=== PATIENT | female | born 1970 | race Caucasian/White ===

== ENCOUNTER 2016-07-14 21:18 | Emergency (ER) | payer OTHER ==
[~2016-07-14] VITALS: Ht 165.1 cm; Wt 54.0 kg
[~2016-07-14 21:18] MED LIST: IBUP200C PO; MULT-120 PO
[2016-07-14 21:21] VITALS: BP 115/74; PULSE 76; RESP 16; TEMP 97.9; O2SAT 99
--- NOTE | 2016-07-14 21:48 | PD ---
HPI Chief Complaint: Pain: Acute or Chronic Time Seen by Provider: 21:43 Travel History International Travel<30 days: No Contact w/Intl Traveler<30days: No Traveled to known affect area: No History of Present Illness HPI 45-year-old white female presents emergency department with a left knee pain. The patient states that she had gone to the [employer] for her first full day at work on . 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 She states that after work she noticed pain and swelling in her left knee. She states that has progressively worsened over last several days. Pain is worse with weightbearing and bending of the knee. Some relief with elevation, and ice. Pain is sharp and stabbing and throbbing at times. Moderate in intensity but more severe with weightbearing. She denies any traumatic event. No numbness, tingling or weakness. She states that she has had surgery on her right knee for a meniscal tear when she was in college. She denies any injury to her left knee in the past. [facility] Past Medical History Narrative Medical History of alcohol abuse, right knee arthroscopy Anxiety: No Depression: No Cancer: No Cardiovascular Problems: No Endocrine: No Gastrointestinal Disorders: No Genitourinary: No Implanted Vascular Access Dvce: No Psychiatric: No Reproductive: No Respiratory: No Seizures: Yes (ETOH WITHDRAWAL) Tetanus Vaccination: < 5 Years ?: Not LMP: N/A Past Surgical History Narrative Surgical aPPENDECTOMY, RIGHT knee arthroscopy, left ankle ORIF Abdominal Surgery: No Appendectomy: Yes Cardiac Surgery: No Ear Surgery: No Endocrine Surgery: No Eye Surgery: No Genitourinary Surgery: No Gynecologic Surgery: No Neurologic Surgery: No Oral Surgery: No Thoracic Surgery: No Other Surgery: Yes Social History Alcohol Use: Yes (BEER DAILY) Tobacco Use: No Substance Use: No Allergies-Medications (Allergen,Severity, Reaction): Coded Allergies: No Known Allergies (Verified , 07/14/16) Reported Meds & Prescriptions Reported Meds & Active Scripts Active Reported Ibuprofen 200 Mg Cap 200 Mg PO Q4H PRN Multivitamin Women (Multiple Vitamins W/ Minerals) 1 Tab Tab 1 Tab PO DAILY Review of Systems Except as stated in HPI: all other systems reviewed are Neg Physical Exam Narrative GENERAL: This is a well-nourished, well-developed patient, in no apparent distress. SKIN: No rashes, ecchymoses or lesions. Warm and dry. HEAD: Atraumatic. Normocephalic. EYES: PERRL, EOMI, no discharge or injection. No scleral icterus. EARS: Clear NOSE: Nasal turbinates appear normal. THROAT: Mucosa pink and moist. Airway patent. NECK: Trachea midline. supple, moves head freely. LUNGS: Clear to auscultation. CV: Regular in rhythm. ABDOMEN: Soft nontender. EXT: No clubbing cyanosis. Examination of left lower extremity reveals a joint effusion. She has full extension but has limited flexion due to pain. No anterior posterior draw. She has pain on medial meniscus testing. No pain on lateral collateral ligament testing. Positive pain on medial collateral ligament testing. There is no pain in the foot, ankle or hip. The skin is intact. She has small punctate areas of ecchymosis over the knee. Data Data Last Documented VS Vital Signs Date Time Temp Pulse Resp B/P Pulse Ox O2 Delivery O2 Flow Rate FiO2 07/14/16 21:21 97.9 76 16 115/74 99 Room Air Orders Knee, Complete (4vws) (07/14/16 21:38) MDM Medical Decision Making Medical Screen Exam Complete: Yes Emergency Medical Condition: Yes Medical Record Reviewed: Yes Interpretation(s) Left knee: Negative for fracture. Mild degenerative changes. Mild osteoporosis. Suprapatellar effusion Differential Diagnosis MDM: High Differential diagnoses: Fracture, sprain, strain, dislocation, contusion, neurovascular injury Narrative Course This is left knee effusion, left knee pain Diagnosis Primary Impression: Effusion, left knee Additional Impression: Left knee pain Qualified Code: M25.562 - Acute pain of left knee Patient Instructions: General Instructions Departure Forms: Tests/Procedures, Work Release Special Instructions: No work 3 days. Additional Instructions: Rest. Elevation. Medications as directed. Limited activity. Follow-up with a primary care doctor or an orthopedist in one week. Return to the ER for emergencies. Med/Other Pt SpecificInfo: Prescription(s) given Disposition: 01 DISCHARGE HOME Condition: Stable Eduin Baptiste Jul 14, 2016 21:48
[2016-07-14] MEDS ORDERED: PRED-503 PO (22:06)
[2016-07-14] MEDS ORDERED: HYDR-3533 PO (22:06)
--- NOTE | 2016-07-14 22:32 | RADRPT ---
EXAM DATE/TIME: 07/14/2016 21:46 [facility] COMPARISON: No previous studies available for comparison. INDICATIONS : Left knee pain. No prior trauma. MEDICAL HISTORY : None. SURGICAL HISTORY : None. ENCOUNTER: Initial ACUITY: 1 week PAIN SCORE: 8/10 LOCATION: Left Knee. FINDINGS: Subtle radiolucencies are identified along the medial and lateral tibial plateau extending to the art iculating surface. These may or present nondisplaced hairline fractures. Minimal effusion is present. The femur and patella are intact. CONCLUSION: Suspected hairline fractures involving the tibial plateau with associated small effusion. Prasanna Slaughter MD on July 14, 2016 at 22:29 Board Certified Radiologist. This report was verified electronically.
[2016-07-22] MEDS ORDERED: IBUP200T2 PO (15:44)
[2016-07-22] MEDS ORDERED: PRED20 PO (15:44)
[2016-07-22] MEDS ORDERED: KETO60IN6 IM (16:04)
== END 2016-07-14 22:24 | disposition home or self-care (01) ==
LOC: NEPB 21:18
DX: M25.462 Effusion, left knee (principal); M25.562 Pain in left knee
CPT/HCPCS: 73564; 99283

== ENCOUNTER 2016-07-14 23:19 | Emergency (ER) | payer OTHER ==
[~2016-07-14] VITALS: Ht 165.1 cm; Wt 55.0 kg
[~2016-07-14 23:19] MED LIST changes: +HYDR-3533 PO; +PRED-503 PO
[2016-07-14 23:22] VITALS: BP 133/79; PULSE 82; RESP 16; TEMP 98.1; O2SAT 99
--- NOTE | 2016-07-14 23:56 | PD ---
HPI Chief Complaint: Injury Time Seen by Provider: 23:54 Travel History International Travel<30 days: No Contact w/Intl Traveler<30days: No Traveled to known affect area: No History of Present Illness HPI This is a 45-year-old white female who had just seen earlier this evening for a left knee injury. My initial evaluation of the x-ray did not reveal an obvious fracture. Radiologist feels that there is a potential tibial plateau fracture. The patient was notified by phone within 1 hour of being discharged. The patient has returned for further evaluation and treatment. We will obtain a CAT scan of her left knee for further evaluation. [facility] Past Medical History Narrative Medical History of seizures, alcohol abuse-states over since April. Anxiety: No Depression: No Cancer: No Cardiovascular Problems: No Endocrine: No Gastrointestinal Disorders: No Genitourinary: No Implanted Vascular Access Dvce: No Psychiatric: No Reproductive: No Respiratory: No Immunizations Current: Yes Seizures: Yes (ETOH WITHDRAWAL) Tetanus Vaccination: > 5 Years Influenza Vaccination: Yes ?: Not Past Surgical History Abdominal Surgery: No Appendectomy: Yes Cardiac Surgery: No Ear Surgery: No Endocrine Surgery: No Eye Surgery: No Genitourinary Surgery: No Gynecologic Surgery: No Neurologic Surgery: No Oral Surgery: No Thoracic Surgery: No Other Surgery: Yes Social History Alcohol Use: No Tobacco Use: No Substance Use: No Allergies-Medications (Allergen,Severity, Reaction): Coded Allergies: No Known Allergies (Verified , 07/14/16) Reported Meds & Prescriptions Reported Meds & Active Scripts Active Lortab (Hydrocodone-Acetaminophen) 5-325 Mg Tab 1 Tab PO Q8HR PRN Reported Multivitamin Women (Multiple Vitamins W/ Minerals) 1 Tab Tab 1 Tab PO DAILY Review of Systems Except as stated in HPI: all other systems reviewed are Neg Musculoskeletal: Positive: Arthralgias, Limited ROM, Edema, Pain Physical Exam Narrative GENERAL: This is a well-nourished, well-developed patient, in no apparent distress. SKIN: No rashes, ecchymoses or lesions. Warm and dry. HEAD: Atraumatic. Normocephalic. EYES: PERRL, EOMI, no discharge or injection. No scleral icterus. EARS: Clear NOSE: Nasal turbinates appear normal. THROAT: Mucosa pink and moist. Airway patent. NECK: Trachea midline. supple, moves head freely. LUNGS: Clear to auscultation. CV: Regular in rhythm. ABDOMEN: Soft nontender. EXT: No clubbing cyanosis. Examination of left lower extremity reveals a joint effusion. She has full extension but has limited flexion due to pain. No anterior posterior draw. She has pain on medial meniscus testing. No pain on lateral collateral ligament testing. Positive pain on medial collateral ligament testing. There is no pain in the foot, ankle or hip. The skin is intact. She has small punctate areas of ecchymosis over the knee. Data Data Last Documented VS Vital Signs Date Time Temp Pulse Resp B/P Pulse Ox O2 Delivery O2 Flow Rate FiO2 07/14/16 23:22 98.1 82 16 133/[address] Knee W/O Contrast (07/14/16 ) Crutches (07/15/16 01:38) Naproxen (Naprosyn) (07/15/16 01:45) Acetamin-Hydrocod 325-5 Mg (D[place]mond 5-325 (07/15/16 01:45) MDM Medical Decision Making Medical Screen Exam Complete: Yes Emergency Medical Condition: Yes Medical Record Reviewed: Yes Interpretation(s) Last 24 hours Impressions Lower Extremity CT 07/14/16 0000 Signed Impressions: Service Date/Time: Friday, July 15, 2016 00:16 - CONCLUSION: 1. Osteopenia. No acute fracture. Eduin Bautista MD Differential Diagnosis Differential diagnoses: Sprain, strain, tibial plateau fracture Narrative Course CT scan of the left knee is negative for acute fracture. Positive osteopenia and joint effusion. Patient given crutches, Lortab 5 mg and Naprosyn 500 mg by mouth. Diagnosis Primary Impression: Effusion, left knee Additional Impression: Left knee pain Qualified Code: M25.562 - Acute pain of left knee Patient Instructions: General Instructions Additional Instructions: Continue your current plan. Med/Other Pt SpecificInfo: No Change to Meds Disposition: DISCHARGE HOME Condition: Stable Eduin Baptiste Jul 14, 2016 23:56
--- NOTE | 2016-07-15 00:34 | RADRPT ---
EXAM DATE/TIME: 07/15/2016 00:16 [facility] COMPARISON: No previous studies available for comparison. INDICATIONS : Evaluate for fracture. RADIATION DOSE: 7.29 CTDIvol (mGy) MEDICAL HISTORY : None SURGICAL HISTORY : None. ENCOUNTER: Initial ACUITY: 1 day PAIN SCALE: 10/10 LOCATION: Left knee TECHNIQUE: Volumetric scanning of the knee was performed. Using automated exposure control and adjustment of th e mA and/or kV according to patient size, radiation dose was kept as low as reasonably achievable to obtain optimal diagnostic quality images. FINDINGS: The bones are osteopenic. Small joint effusion. No acute fracture or dislocation. CONCLUSION: 1. Osteopenia. No acute fracture. Eduin Bautista MD on July 15, 2016 at 0:29 Board Certified Radiologist. This report was verified electronically.
[2016-07-15] MEDS ORDERED: ACETAMINOPHEN/HYDROcodone 325 MG/5 MG TAB PO ONE (01:45)
[2016-07-15] MEDS ORDERED: NAPROXEN 500 MG TAB PO ONE (01:45)
[2016-07-22] MEDS ORDERED: PRED20 PO (15:44)
[2016-07-22] MEDS ORDERED: IBUP200T2 PO (15:44)
[2016-07-22] MEDS ORDERED: KETO60IN6 IM (16:04)
== END 2016-07-15 02:05 | disposition home or self-care (01) ==
LOC: NEPB 23:19
DX: M25.462 Effusion, left knee (principal)
CPT/HCPCS: 73700

== ENCOUNTER 2016-08-27 01:45 | Emergency (ER) | payer SELFPAY ==
[~2016-08-27] VITALS: Ht 167.6 cm; Wt 60.0 kg
[~2016-08-27 01:45] MED LIST changes: -IBUP200C PO; +IBUP200T2 PO; -PRED-503 PO; +PRED20 PO
[2016-08-27 01:47] VITALS: BP 112/73; PULSE 80; RESP 16; TEMP 97.6; O2SAT 100
--- NOTE | 2016-08-27 03:01 | PD ---
HPI Chief Complaint: Skin Problem Time Seen by Provider: 02:57 Travel History International Travel<30 days: No Contact w/Intl Traveler<30days: No Traveled to known affect area: No History of Present Illness HPI 45-year-old female presents to emergency department with a one-month history of progressive pruritic rash all over her whole body. She states that it continues to worsen and spread. It had initially started on her extremities but now is moved her trunk only thing that seems to be spared is her face. She does not recall any new chemicals or exposures. Review of the record indicates she had had a similar rash the past but cannot recall. No recent illness. No fever chills. PFSH Past Medical History Anxiety: No Depression: No Cancer: No Cardiovascular Problems: No Diminished Hearing: No Endocrine: No Gastrointestinal Disorders: No Genitourinary: No Implanted Vascular Access Dvce: No Psychiatric: No Reproductive: No Respiratory: No Immunizations Current: Yes Seizures: Yes (ETOH WITHDRAWAL) Tetanus Vaccination: > 5 Years Influenza Vaccination: Yes ?: Not Past Surgical History Abdominal Surgery: No Appendectomy: Yes Cardiac Surgery: No Ear Surgery: No Endocrine Surgery: No Eye Surgery: No Genitourinary Surgery: No Gynecologic Surgery: No Neurologic Surgery: No Oral Surgery: No Thoracic Surgery: No Other Surgery: Yes Social History Alcohol Use: No Tobacco Use: No Substance Use: No Allergies-Medications (Allergen,Severity, Reaction): Coded Allergies: No Known Allergies (Verified , 08/27/16) Reported Meds & Prescriptions Reported Meds & Active Scripts Active Reported Ibuprofen 200 Mg Tab 400 Mg PO Q4H PRN Multivitamin Women (Multiple Vitamins W/ Minerals) 1 Tab Tab 1 Tab PO DAILY Review of Systems Except as stated in HPI: all other systems reviewed are Neg Skin: Positive Rash, Positive Itching, Positive Lesions Physical Exam Narrative GENERAL: This is a well-nourished, well-developed patient, in no apparent distress. SKIN: Patient has a diffuse whole body rash which is consisting of a story of the back rear papular lesions and some scaling. I question whether this could be scabies or a contact dermatitis. No signs of any wound infection., ecchymoses or lesions. Warm and dry. HEAD: Atraumatic. Normocephalic. EYES: PERRL, EOMI, no discharge or injection. No scleral icterus. EARS: Clear NOSE: Nasal turbinates appear normal. THROAT: Mucosa pink and moist. Airway patent. NECK: Trachea midline. supple, moves head freely. LUNGS: Clear to auscultation. CV: Regular in rhythm. ABDOMEN: Soft nontender. EXT: No clubbing cyanosis or edema. Data Data Last Documented VS Vital Signs Date Time Temp Pulse Resp B/P Pulse Ox O2 Delivery O2 Flow Rate FiO2 08/27/16 02:11 16 08/27/16 01:47 97.6 80 112/73 100 MDM Medical Decision Making Medical Screen Exam Complete: Yes Emergency Medical Condition: Yes Medical Record Reviewed: Yes Differential Diagnosis MDM: High Differential diagnoses: Abscess, folliculitis, cellulitis, lymphangitis, abrasion, contact dermatitis, scabies Narrative Course The patient has had a progressive rash over last month. I am concerned that she may have contacted scabies. She'll also be treated for contact dermatitis. Diagnosis Primary Impression: Contact dermatitis Qualified Code: L25.9 - Contact dermatitis, unspecified contact dermatitis type, unspecified trigger Additional Impression: scabies Patient Instructions: General Instructions Additional Instructions: Rest. Elevation. keep clean and dry. Medications as directed Daily wound care with soap, water and Neosporin. Three Advil every 6 hours. Zyrtec daily. May take additional 25-50 mg Benadryl every 6 hours as needed for additional itching. Follow-up with a primary care doctor in one week. Return to the ER for any problems. Med/Other Pt SpecificInfo: Prescription(s) given Disposition: DISCHARGE HOME Condition: Stable Eduin Baptiste Aug 27, 2016 03:01
[2016-08-27] MEDS ORDERED: PRED-503 PO (03:02)
[2016-08-27] MEDS ORDERED: PERM5CRE11 TOPICAL (03:02)
== END 2016-08-27 03:36 | disposition home or self-care (01) ==
LOC: NEPK 01:45
DX: L25.9 Unspecified contact dermatitis, unspecified cause (principal); B86 Scabies
CPT/HCPCS: 99282

== ENCOUNTER 2016-11-14 13:10 | Inpatient (IN) | payer SELFPAY ==
[~2016-11-14] VITALS: Ht 165.1 cm; Wt 49.6 kg
[2016-11-14] VITALS (8 sets, daily range): BP systolic 92–130; BP diastolic 51–78; PULSE 69–180; RESP 14–25; TEMP 98.3; O2SAT 99–100
[~2016-11-14 13:10] MED LIST changes: -HYDR-3533 PO; +PERM5CRE11 TOPICAL; +PRED-503 PO; -PRED20 PO
[2016-11-14] MEDS ORDERED: ADENOSINE IV SOLN 3 MG/ML 2 ML VIAL ONE (13:25)
[2016-11-14] MEDS ORDERED: SODIUM CHLOR 0.9% 1000 ML INJ 1,000 ML IV ONE (13:45)
[2016-11-14] MEDS ORDERED: SODIUM CHLORIDE 0.9% FLUSH 10 ML FLUSH IVF PRN (13:45)
[2016-11-14] MEDS ORDERED: ADENOSINE IV SOLN 3 MG/ML 2 ML VIAL IV PUSH ONE (13:45)
[2016-11-14 13:51] LABS: AUTOMATED NEUTROPHIL # 3.3 TH/MM3 (1.8-7.7); BASOPHIL # 0.1 TH/MM3 (0-0.2); EOSINOPHIL # 0.1 TH/MM3 (0-0.4); EOSINOPHIL % 1.4 % (0.0-4.0); HEMATOCRIT 38.8 % (35.0-46.0); HEMO FLAGS DIFF FINAL; LYMPHOCYTE # 1.9 TH/MM3 (1.0-4.8); MEAN CELL VOLUME 84.3 FL (80.0-100.0); MEAN CORPUSCULAR HEMOGLOBIN 28.8 PG (27.0-34.0); MEAN CORPUSCULAR HGB CONC 34.1 % (32.0-36.0); MONO % 12.4 % (0.0-8.0); NEUT % 54.2 % (16.0-70.0); PLATELET COUNT 232 TH/MM3 (150-450)
--- NOTE | 2016-11-14 13:54 | RADRPT ---
EXAM DATE/TIME: 11/14/2016 13:29 [facility] COMPARISON: CHEST SINGLE AP, October 31, 2014, 21:08. INDICATIONS : Pain and tightness in chest since last evening, nausea, vomiting MEDICAL HISTORY : seizure SURGICAL HISTORY : None. ENCOUNTER: Initial ACUITY: 1 day PAIN SCORE: 6/10 LOCATION: Bilateral chest FINDINGS: A single view of the chest demonstrates the lungs to be symmetrically aerated without evidence of mas s, infiltrate or effusion. Granuloma is present on the right. The cardiomediastinal contours are un remarkable. Osseous structures are intact. CONCLUSION: Stable chest, negative for acute process. Giorgio Marks MD FACR on November 14, 2016 at 13:51 Board Certified Radiologist. This report was verified electronically.
[2016-11-14 13:59] LABS: APTT (PATIENT) 33.2 SEC (24.3-30.1); INTERNATIONAL NORMALIZED RATIO 1.2 RATIO; PROTHROMBIN TIME - PATIENT 12.9 SEC (9.8-11.6)
[2016-11-14 14:08] LABS: ANION GAP 14 MEQ/L (5-15); BICARBONATE 23.5 MEQ/L (21.0-32.0); BLOOD UREA NITROGEN 11 MG/DL (7-18); CHLORIDE 99 MEQ/L (98-107); GLOMERULAR FILTRATION RATE 37 ML/MIN (>89); MAGNESIUM 1.9 MG/DL (1.5-2.5); POTASSIUM 3.7 MEQ/L (3.5-5.1); SODIUM (NA) 136 MEQ/L (136-145)
[2016-11-14 14:11] LABS: CREATINE KINASE 114 U/L (26-192)
[2016-11-14 14:38] LABS: CKMB 4.3 NG/ML (0.5-3.6)
[2016-11-14] MEDS ORDERED: ONDANSETRON HCL 4 MG/2 ML VIAL IV PUSH PRN (15:15)
[2016-11-14] MEDS ORDERED: ASPIRIN EC 81 MG TABEC PO ONE (15:30)
--- NOTE | 2016-11-14 15:32 | PD ---
HPI Chief Complaint: Cardiac Complaint Time Seen by Provider: 13:32 Travel History International Travel<30 days: No Contact w/Intl Traveler<30days: No Traveled to known affect area: No History of Present Illness HPI The patient's 46 years old. Last night she developed some weakness and generalized fatigue. She [place] late [place] She woke up this morning with palpitations which are very uncomfortable for her. She arrives to the ER by private auto with SVT. She denies any similar prior episode. She denies a personal or family history of coronary artery disease area. She does not smoke tobacco however does drink alcohol about 3 times a week. She has no history of diabetes hypertension or hyperlipidemia. She reports drinking a large volume of caffeinated tea in order to work her new job which is somewhat stressful but denies excessive energy drink use or any drug abuse. PFSH Past Medical History Anxiety: No Depression: No Cancer: No Cardiovascular Problems: No Diminished Hearing: No Endocrine: No Gastrointestinal Disorders: No Genitourinary: No Implanted Vascular Access Dvce: No Psychiatric: No Reproductive: No Respiratory: No Immunizations Current: Yes Seizures: Yes (ETOH WITHDRAWAL) Tetanus Vaccination: > 5 Years Influenza Vaccination: Yes ?: Not Past Surgical History Abdominal Surgery: No Appendectomy: Yes Cardiac Surgery: No Ear Surgery: No Endocrine Surgery: No Eye Surgery: No Genitourinary Surgery: No Gynecologic Surgery: No Neurologic Surgery: No Oral Surgery: No Thoracic Surgery: No Other Surgery: Yes Social History Alcohol Use: Yes ("FEW TIMES A WEEK" ) Tobacco Use: No Substance Use: No Allergies-Medications (Allergen,Severity, Reaction): Coded Allergies: No Known Allergies (Verified , 08/27/16) Reported Meds & Prescriptions Reported Meds & Active Scripts Active No Active Prescriptions or Reported Medications Review of Systems Except as stated in HPI: all other systems reviewed are Neg Physical Exam Narrative GENERAL: 46-year-old female pleasant well-nourished well-developed moderate distress secondary to tachycardia SKIN: Focused skin assessment warm/dry. HEAD: Atraumatic. Normocephalic. EYES: Pupils equal and round. No scleral icterus. No injection or drainage. ENT: No nasal bleeding or discharge. Mucous membranes pink and moist. NECK: Trachea midline. No JVD. CARDIOVASCULAR: Tachycardia at about 170. Regular rhythm. RESPIRATORY: No accessory muscle use. Clear to auscultation. Breath sounds equal bilaterally. GASTROINTESTINAL: Abdomen soft, non-tender, nondistended. Hepatic and splenic margins not palpable. MUSCULOSKELETAL: No obvious deformities. No clubbing. No cyanosis. No edema. NEUROLOGICAL: Awake and alert. No obvious cranial nerve deficits. Motor grossly within normal limits. Normal speech. PSYCHIATRIC: Appropriate mood and affect; insight and judgment normal. Data Data Last Documented VS Vital Signs Date Time Temp Pulse Resp B/P Pulse Ox O2 Delivery O2 Flow Rate FiO2 11/14/16 13:35 99 Nasal Cannula 3 11/14/16 13:35 73 18 99/73 Vital signs reviewed Orders Adenosine Inj (Adenocard Inj) (11/14/16 13:25) Electrocardiogram (11/14/16 13:32) Basic Metabolic Panel (Bmp) (11/14/16 13:32) Ckmb (Isoenzyme) Profile (11/14/16 13:32) Complete Blood Count With Diff (11/14/16 13:32) Magnesium (Mg) (11/14/16 13:32) Prothrombin Time / Inr (Pt) (11/14/16 13:32) Act Partial Throm Time (Ptt) (11/14/16 13:32) Troponin I (11/14/16 13:32) Chest, Single Ap (11/14/16 13:32) Ecg Monitoring (11/14/16 13:32) Iv Access Insert/Monitor (11/14/16 13:32) Oximetry (11/14/16 13:32) Oxygen Administration (11/14/16 13:32) Sodium Chloride 0.9% Flush (Ns Flush) (11/14/16 13:45) Sodium Chlor 0.9% 1000 Ml Inj (Ns 1000 M (11/14/16 13:45) Adenosine Inj (Adenocard Inj) (11/14/16 13:45) CKMB (11/14/16 13:25) CKMB% (11/14/16 13:25) Troponin I (11/14/16 19:00) Troponin I (11/15/16 01:00) Diet Npo (11/14/16 Dinner) Vital Signs (Adult) FLOYD.Q4H (11/14/16 15:06) Sodium Chlor 0.9% 1000 Ml Inj (Ns 1000 M (11/14/16 15:15) Ondansetron Inj (Zofran Inj) (11/14/16 15:15) Admit Order (Ed Use Only) (11/14/16 15:09) Labs Laboratory Tests Test 11/14/16 13:25 White Blood Count 6.0 TH/MM3 Red Blood Count 4.60 MIL/MM3 Hemoglobin 13.2 GM/DL Hematocrit 38.8 % Mean Corpuscular Volume 84.3 FL Mean Corpuscular Hemoglobin 28.8 PG Mean Corpuscular Hemoglobin 34.1 % Concent Red Cell Distribution Width 18.0 % Platelet Count 232 TH/MM3 Mean Platelet Volume 8.2 FL Neutrophils (%) (Auto) 54.2 % Lymphocytes (%) (Auto) 31.0 % Monocytes (%) (Auto) 12.4 % Eosinophils (%) (Auto) 1.4 % Basophils (%) (Auto) 1.0 % Neutrophils # (Auto) 3.3 TH/MM3 Lymphocytes # (Auto) 1.9 TH/MM3 Monocytes # (Auto) 0.7 TH/MM3 Eosinophils # (Auto) 0.1 TH/MM3 Basophils # (Auto) 0.1 TH/MM3 CBC Comment DIFF FINAL Differential Comment Prothrombin Time 12.9 SEC Prothromb Time International 1.2 RATIO Ratio Activated Partial 33.2 SEC Thromboplast Time Sodium Level 136 MEQ/L Potassium Level 3.7 MEQ/L Chloride Level 99 MEQ/L Carbon Dioxide Level 23.5 MEQ/L Anion Gap 14 MEQ/L Blood Urea Nitrogen 11 MG/DL Creatinine 1.51 MG/DL Estimat Glomerular Filtration 37 ML/MIN Rate Random Glucose 188 MG/DL Calcium Level 8.4 MG/DL Magnesium Level 1.9 MG/DL Total Creatine Kinase 114 U/L Creatine Kinase MB 4.3 NG/ML Troponin I 1.01 NG/ML [facility] Medical Decision Making Medical Screen Exam Complete: Yes Emergency Medical Condition: Yes Medical Record Reviewed: Yes Differential Diagnosis NSTEMI, unstable angina, coronary vasospasm, PE, PTX, aortic dissection, pericarditis, myocarditis, endocarditis, PNA, esophageal disease, aneurysm, musculoskeletal etiologies, anxiety, cocaine/sympathomimetic abuse Narrative Course Initial EKG reveals supraventricular tachycardia rate about 170. Repeat EKG reveals sinus rhythm at a rate of 80. CBC & BMP Diagram 11/14/16 13:25 Troponin is 1.01 Results were discussed with cardiology who requested chest pain center workup, also noting Tn of 1.01 is not unexpected. Outpatient EP follow up advised. Due to the troponin of 1.0 the patient cannot be managed there. Dr Wilhelm for [facility] has accepted the patient. Diagnosis Primary Impression: SVT (supraventricular tachycardia) Additional Impression: Elevated troponin Admitting Information Admitting Physician Requests: Observation Scripts No Active Prescriptions or Reported Meds Luigi Reid MD Nov 14, 2016 15:32
--- NOTE | 2016-11-14 15:34 | HHI.HP ---
[facility] [place] Physician Susan Kendall MD Admission Diagnosis SVT, Tn 1.0 Diagnoses: (1) Elevated troponin Diagnosis: Principal (2) SVT (supraventricular tachycardia) Diagnosis: Principal (3) Acute kidney injury Diagnosis: Principal Chief Complaint: palpitation Travel History International Travel<30 Days: No Contact w/Intl Traveler <30 Da: No Traveled to Known Affected Are: No History of Present Illness patient is a 46 y/o female with no significant past medical history who presented to ER with dizziness and palpitation. she says that she was at her usual state of health till last night around ten when she started to feel dizzy. she says that she went to bed but when she woke up this morning she had palpitation and since she wasn't feeling good she decided to come to ER. she denies any chest pain or sob but she says that she had nausea and threw up a few times.she was found to be in SVT for which she received a dose of adenosine after which it converted to sinus rhythm. she was in no acute distress at the time of my evaluation. Review of Systems Constitutional: COMPLAINS OF: Dizziness, DENIES: Fever, Weight loss, Chills, Night Sweats Eyes: DENIES: Blurred vision, Diplopia, Vision loss, Double Vision Ears, nose, mouth, throat: DENIES: Tinnitus, Vertigo, Throat pain, Epistaxis Respiratory: DENIES: Apneas, Cough, Snoring, Wheezing, Hemoptysis, Sputum production, Shortness of breath Cardiovascular: COMPLAINS OF: Palpitations, DENIES: Chest pain, Syncope, Dyspnea on Exertion, PND, Lower Extremity Edema, Orthopnea, Claudication Gastrointestinal: DENIES: Abdominal pain, Black stools, Bloody stools, Constipation, Diarrhea, Nausea, Vomiting, Difficulty Swallowing, Anorexia Genitourinary: DENIES: Urinary frequency, Urgency, Hematuria, Dysuria Musculoskeletal: DENIES: Joint pain, Muscle aches, Stiffness, Joint Swelling Integumentary: DENIES: Rash Neurologic: DENIES: Abnormal gait, Headache, Localized weakness, Paresthesias, Seizures, Speech Problems, Tremor, Poor Balance Psychiatric: DENIES: Anxiety, Confusion, Mood changes, Depression, Hallucinations, Agitation, Suicidal Ideation, Homicidal Ideation, Delusions Past Family Social History Past Medical History not significant. Past Surgical History appendectomy. Reported Medications none reported. Allergies: Coded Allergies: No Known Allergies (Verified , 08/27/16) Active Ordered Medications Current Medications Adenosine (Adenocard Inj) 18 mg STK-MED ONCE .ROUTE ; Start 11/14/16 at 13:25; Stop 11/14/16 at 13:26; Status DC Sodium Chloride 2 ml 2 ml UNSCH PRN IVF FLUSH AFTER USING IV ACCESS; Start at 13:45 Sodium Chloride (NS 1000 ml Inj) 1,000 ml @ 999 mls/hr BOLUS ONCE IV Last administered on 11/14/16 13:48; Start 11/14/16 at 13:45; Stop 11/14/16 at 14:45 ; Status DC Adenosine 6 mg 6 mg ONCE ONCE IV PUSH Last administered on 11/14/16 13:37; Start 11/14/16 at 13:45; Stop 11/14/16 at 13:46; Status DC Sodium Chloride (NS 1000 ml Inj) 1,000 ml @ 84 mls/hr [id number] IV ; Start at 15:15; Status UNV Ondansetron HCl (Zofran Inj) 4 mg Q8HR PRN IV PUSH NAUSEA; Start 11/14/16 at 15 :15; Status UNV Family History not relevant to this presentation. Social History doesn't smoke. drinks occasionally. Physical Exam Vital Signs Vital Signs Date Time Temp Pulse Resp B/P Pulse Ox O2 Delivery O2 Flow Rate FiO2 11/14/16 13:35 99 Nasal Cannula 3 11/14/16 13:35 99 Nasal Cannula 3 11/14/16 13:35 73 18 99/73 100 Nasal Cannula 3 11/14/16 13:31 164 25 99 Nasal Cannula 3 11/14/16 13:30 164 11/14/16 13:23 164 25 92/64 100 11/14/16 13:16 180 14 95/51 100 Room Air Physical Exam GENERAL: This is a well-nourished, well-developed patient, in no apparent distress. SKIN: No rashes, ecchymoses or lesions. Cool and dry. HEAD: Atraumatic. Normocephalic. No temporal or scalp tenderness. EYES: Pupils equal round and reactive. Extraocular motions intact. No scleral icterus. No injection or drainage. ENT: Nose without bleeding, purulent drainage or septal hematoma. Throat without erythema, tonsillar hypertrophy or exudate. Uvula midline. Airway patent. NECK: Trachea midline. No JVD or lymphadenopathy. Supple, nontender, no meningeal signs. CARDIOVASCULAR: Regular rate and rhythm without murmurs, gallops, or rubs. RESPIRATORY: Clear to auscultation. Breath sounds equal bilaterally. No wheezes , rales, or rhonchi. GASTROINTESTINAL: Abdomen soft, non-tender, nondistended. No hepato-splenomegaly , or palpable masses. No guarding. MUSCULOSKELETAL: Extremities without clubbing, cyanosis, or edema. No joint tenderness, effusion, or edema noted. No calf tenderness. Negative Homans sign bilaterally. NEUROLOGICAL: Awake and alert. Cranial nerves II through XII intact. Motor and sensory grossly within normal limits. Five out of 5 muscle strength in all muscle groups. Normal speech. Laboratory Laboratory Tests Test 11/14/16 13:25 White Blood Count 6.0 Red Blood Count 4.60 Hemoglobin 13.2 Hematocrit 38.8 Mean Corpuscular Volume 84.3 Mean Corpuscular Hemoglobin 28.8 Mean Corpuscular Hemoglobin 34.1 Concent Red Cell Distribution Width 18.0 Platelet Count 232 Mean Platelet Volume 8.2 Neutrophils (%) (Auto) 54.2 Lymphocytes (%) (Auto) 31.0 Monocytes (%) (Auto) 12.4 Eosinophils (%) (Auto) 1.4 Basophils (%) (Auto) 1.0 Neutrophils # (Auto) 3.3 Lymphocytes # (Auto) 1.9 Monocytes # (Auto) 0.7 Eosinophils # (Auto) 0.1 Basophils # (Auto) 0.1 CBC Comment DIFF FINAL Differential Comment Prothrombin Time 12.9 Prothromb Time International 1.2 Ratio Activated Partial 33.2 Thromboplast Time Sodium Level 136 Potassium Level 3.7 Chloride Level 99 Carbon Dioxide Level 23.5 Anion Gap 14 Blood Urea Nitrogen 11 Creatinine 1.51 Estimat Glomerular Filtration 37 Rate Random Glucose 188 Calcium Level 8.4 Magnesium Level 1.9 Total Creatine Kinase 114 Creatine Kinase MB 4.3 Troponin I 1.01 Result Diagram: 11/14/16 1325 11/14/16 1325 Imaging Last Impressions Chest X-Ray 11/14/16 1332 Signed Impressions: Service Date/Time: Monday, November 14, 2016 13:29 - CONCLUSION: Stable chest, negative for acute process. Giorgio Marks MD FACR EKG; SVT Assessment and Plan Assessment and Plan A/P - SVT - converted to sinus rhythm after a dose of Adenosine in ER- continue to monitor on telemetry -elevated troponin- due to SVT?- trend the cardiac enzymes- consult cardiology. -acute kidney injury; start IV fluid and monitor renal function; BMP in am. Discussed Condition With ER physician and the patient. Physician Certification 2 Midnight Certification Type: Admission for Inpatient Services Order for Inpatient Services The services are ordered in accordance with Medicare regulations or non- Medicare payer requirements, as applicable. In the case of services not specified as inpatient-only, they are appropriately provided as inpatient services in accordance with the 2-midnight benchmark. Estimated LOS (days): 2 days is the estimated time the patient will need to remain in the hospital, assuming treatment plan goals are met and no additional complications. Post-Hospital Plan: Home Mala Wilhelm MD Nov 14, 2016 15:34
[2016-11-14] MEDS: SODIUM CHLOR 0.9% 1000 ML INJ 1,000 ML IV SCH ×2 (16:14→18:27)
--- NOTE | 2016-11-14 17:10 | MB ---
cc: DAV YOST M.D. DATE OF CONSULTATION: 11/14/2016 REASON FOR CONSULTATION: Evaluation of SVT and elevated troponin. HISTORY OF PRESENT ILLNESS Veronique Harding is a 46-year-old woman from [facility], admitted with SVT and elevated troponin. She was at work at 10:00 p.m. and developed the onset of palpitations and dizziness. She had some vomiting. She decided to go home instead of coming to the hospital. This morning she felt the same. She felt her heart beating very, very fast. She presented in SVT with a rate of 170. After IV adenosine she converted to sinus rhythm. She never had any typical ischemic type symptoms. She does not have any angina. She has no known cardiac risk factors, specifically no family history of coronary artery disease, hyperlipidemia, hypertension, diabetes, smoking. She drinks five Kadi teas a day. She has [employer] alcoholic drinks usually three at a time a few times a week, if she is off work she will drink five of them. PAST MEDICAL HISTORY Unremarkable. PAST SURGICAL HISTORY Appendectomy. ALLERGIES None known. SOCIAL HISTORY Does not smoke, does drink alcohol. FAMILY HISTORY Hypertension in her father. No coronary disease. PHYSICAL EXAMINATION GENERAL: Well-developed, well-nourished female in no acute distress. VITAL SIGNS: Charted. HEENT: Exam unremarkable. NECK: No JVD, no bruits. CHEST: Clear to auscultation. CARDIAC: Normal first and second heart sounds. Regular rate and rhythm. No murmurs or gallops. ABDOMEN: Soft, nontender. The masses, organomegaly. EXTREMITIES: No clubbing, cyanosis or edema. EKG From 01:24 p.m. today shows SVT at a rate of 170. There is a tiny retrograde P-wave in V1, suggestive of AV node reentry. EKG 12 minutes later shows normal sinus rhythm with no acute ST-T wave changes. LABORATORY Her creatinine is 1.51. Troponin is 1.01. Hematocrit 38.8. IMPRESSION This is a 46-year-old woman with a history of excessive alcohol consumption, excessive caffeine consumption, who presents with SVT that looks like AV node reentry, looks like she was in it for over 12 hours. Her troponin is elevated but there is no anginal symptoms or signs of ischemia on her EKG and she has no known cardiac risk factors. I believe the elevated troponin is likely secondary to the SVT and my suspicion for coronary artery disease as low even though the troponin is elevated. RECOMMENDATIONS The patient will be observed overnight. Will probably get a nuclear stress test and echo tomorrow, if those are normal we will let her go home and follow up with Dr. Bernardo for consideration of ablation at a future date. In the meantime advised to discontinue drinking alcohol and caffeine. MD THANH Hameed/MONICA /4:53 PM /5:00 PM
--- NOTE | 2016-11-14 17:59 | EKG ---
Date Performed: 11/14/2016 Time Performed: 13:24:04 PTAGE: 46 years EKG: SUPRAVENTRICULAR TACHYCARDIA Nonspecific ST segment changes ABNORMAL ECG NO PREVIOUS TRACING DOCTOR: Linwood Sal Interpretating Date/Time 11/14/2016 17:58:24
--- NOTE | 2016-11-14 17:59 | EKG ---
Date Performed: 11/14/2016 Time Performed: 13:36:09 PTAGE: 46 years EKG: Sinus rhythm NORMAL ECG COMPARED TO PRIOR ELECTROCARDIOGRAM, Sinus rhythm has replaced supraventricular tachycard ia. PREVIOUS TRACING : 11/14/2016 13.24 DOCTOR: Linwood Sal Interpretating Date/Time 11/14/2016 17:58:03
[2016-11-15] VITALS: BP 114/73; PULSE 64; RESP 16; TEMP 98.1; O2SAT 99
[2016-11-15 04:00] VITALS: BP 111/73; PULSE 51; RESP 16; TEMP 97.7; O2SAT 98
[2016-11-15 04:16] LABS: BICARBONATE 26.8 MEQ/L (21.0-32.0); POTASSIUM 3.4 MEQ/L (3.5-5.1)
[2016-11-15 08:00] VITALS: BP 116/69; PULSE 53; PULSE 60; RESP 18; TEMP 98.5; O2SAT 98
[2016-11-15] MEDS ORDERED: MISCELLANEOUS NURSING INFORMATION ONE ×2 (09:00→10:00)
--- NOTE | 2016-11-15 09:20 | PD.CARD.PN ---
Subjective Subjective Remarks No angina. No CV complaints. States she has already gone through menopause Objective Medications Current Medications Medications (Trade) Dose Ordered Sig/Tamera Route Start Time Stop Time Status Last Admin Sodium Chloride 2 ml 2 ml UNSCH PRN IVF 11/14/16 13:45 (NS 1000 ml Inj) 1,000 ml @ 84 mls/hr [id number] IV 11/14/16 15:15 11/14/16 18:27 (Zofran Inj) 4 mg Q8HR PRN IV PUSH 11/14/16 15:15 Miscellaneous Information "PNEUMOVAX VACCINE GI... ONCE ONCE .XX 11/15/16 10:00 11/15/16 10:01 Vital Signs / I&O Vital Signs Date Time Temp Pulse Resp B/P Pulse Ox O2 Delivery O2 Flow Rate FiO2 11/15/16 08:00 98.5 60 18 116/69 98 11/15/16 04:00 97.7 51 16 111/73 98 11/15/16 00:00 98.1 64 16 114/73 99 11/14/16 20:00 73 11/14/16 20:00 98.3 73 16 130/78 100 11/14/16 16:30 69 18 100/70 100 Room Air 11/14/16 15:30 70 18 107/77 99 Room Air 11/14/16 14:30 76 18 111/78 99 Room Air 11/14/16 13:35 99 Nasal Cannula 3 11/14/16 13:35 99 Nasal Cannula 3 11/14/16 13:35 73 18 99/73 100 Nasal Cannula 3 11/14/16 13:31 164 25 99 Nasal Cannula 3 11/14/16 13:30 164 11/14/16 13:23 164 25 92/64 100 11/14/16 13:16 180 14 95/51 100 Room Air I/O 11/14/16 11/14/16 11/14/16 11/15/16 11/15/16 11/15/16 07:00 15:00 23:00 07:00 15:00 23:00 Intake Total 580 ml 0 ml Balance 580 ml 0 ml Intake Oral 580 ml 0 ml # Voids 1 2 # Bowel Movements 0 0 Physical Exam GENERAL: Well developed, well nourished. No acute distress. HEENT: Jugular venous pressure is normal. CHEST: Lungs clear to auscultation bilaterally. Unlabored respiratory effort. CARDIAC: Regular rate and rhythm without S3, S4, or murmur. ABDOMEN: Soft, nontender, no hepatosplenomegaly. Bowel sounds present. EXTREMITIES: No clubbing, cyanosis, or edema. TELE: sinus rhytm, no further SVT, sinus christelle down to 45 while sleeping EKG: NSR, no ischemia Laboratory Laboratory Tests Test 11/14/16 11/14/16 11/15/16 13:25 20:16 02:33 White Blood Count 6.0 TH/MM3 Red Blood Count 4.60 MIL/MM3 Hemoglobin 13.2 GM/DL Hematocrit 38.8 % Mean Corpuscular Volume 84.3 FL Mean Corpuscular Hemoglobin 28.8 PG Mean Corpuscular Hemoglobin 34.1 % Concent Red Cell Distribution Width 18.0 % Platelet Count 232 TH/MM3 Mean Platelet Volume 8.2 FL Neutrophils (%) (Auto) 54.2 % Lymphocytes (%) (Auto) 31.0 % Monocytes (%) (Auto) 12.4 % Eosinophils (%) (Auto) 1.4 % Basophils (%) (Auto) 1.0 % Neutrophils # (Auto) 3.3 TH/MM3 Lymphocytes # (Auto) 1.9 TH/MM3 Monocytes # (Auto) 0.7 TH/MM3 Eosinophils # (Auto) 0.1 TH/MM3 Basophils # (Auto) 0.1 TH/MM3 CBC Comment DIFF FINAL Differential Comment Prothrombin Time 12.9 SEC Prothromb Time International 1.2 RATIO Ratio Activated Partial 33.2 SEC Thromboplast Time Sodium Level 136 MEQ/L 138 MEQ/L Potassium Level 3.7 MEQ/L 3.4 MEQ/L Chloride Level 99 MEQ/L 106 MEQ/L Carbon Dioxide Level 23.5 MEQ/L 26.8 MEQ/L Anion Gap 14 MEQ/L 5 MEQ/L Blood Urea Nitrogen 11 MG/DL 8 MG/DL Creatinine 1.51 MG/DL 0.72 MG/DL Estimat Glomerular Filtration 37 ML/MIN 86 ML/MIN Rate Random Glucose 188 MG/DL 97 MG/DL Calcium Level 8.4 MG/DL 7.5 MG/DL Magnesium Level 1.9 MG/DL Total Creatine Kinase 114 U/L Creatine Kinase MB 4.3 NG/ML Troponin I 1.01 NG/ML 2.50 NG/ML 1.74 NG/ML Imaging Last 24 hours Impressions Chest X-Ray 11/14/16 2 Signed Impressions: Service Date/Time: Monday, November 14, 2016 13:29 - CONCLUSION: Stable chest, negative for acute process. Giorgio Marks MD FACR Assessment and Plan Problem List: (1) SVT (supraventricular tachycardia) Assessment and Plan: typical of AV node reentry. Converted with adenosine. Sched OV with Dr. Bernardo to eval for EPS/RFA. Stop caffeine ([employer] ice teas) and alcohol (2) Elevated troponin Assessment and Plan: levels are high because she stayed in SVT > 12 hours before seeking treatment. No angina. No CAD risk factors. No ischemia by EKG. Order sadi SPECT Assessment and Plan OK to DC home if SPECT is without ischemia. Ryan June MD Nov 15, 2016 09:20
[2016-11-15] MEDS ORDERED: POTASSIUM CHLORIDE 20 MEQ CONTROLLED RELEASE TAB PO ONE (09:30)
--- NOTE | 2016-11-15 09:35 | EKG ---
Date Performed: 11/15/2016 Time Performed: 06:29:16 PTAGE: 46 years EKG: Baseline artifact is present. Probable Sinus bradycardia Prolonged QT interval Anterior T w ave changes are nonspecific Borderline ECG Compared to prior electrocardiogram, rate has slowed. PREVIOUS TRACING : 11/14/2016 13.36 DOCTOR: Linwood Sal Interpretating Date/Time 11/15/2016 09:34:53
--- NOTE | 2016-11-15 11:14 | HHI.PR ---
Subjective Remarks resting comfortably with no distress. no chest pain, sob or dizziness. awaiting stress test. Objective Vitals Vital Signs Date Time Temp Pulse Resp B/P Pulse Ox O2 Delivery O2 Flow Rate FiO2 11/15/16 08:00 98.5 60 18 116/69 98 11/15/16 04:00 97.7 51 16 111/73 98 11/15/16 00:00 98.1 64 16 114/73 99 11/14/16 20:00 73 11/14/16 20:00 98.3 73 16 130/78 100 11/14/16 16:30 69 18 100/70 100 Room Air 11/14/16 15:30 70 18 107/77 99 Room Air 11/14/16 14:30 76 18 111/78 99 Room Air 11/14/16 13:35 99 Nasal Cannula 3 11/14/16 13:35 99 Nasal Cannula 3 11/14/16 13:35 73 18 99/73 100 Nasal Cannula 3 11/14/16 13:31 164 25 99 Nasal Cannula 3 11/14/16 13:30 164 11/14/16 13:23 164 25 92/64 100 11/14/16 13:16 180 14 95/51 100 Room Air I/O 11/14/16 11/14/16 11/14/16 11/15/16 11/15/16 11/15/16 07:00 15:00 23:00 07:00 15:00 23:00 Intake Total 580 ml 0 ml Balance 580 ml 0 ml Intake Oral 580 ml 0 ml # Voids 1 2 # Bowel Movements 0 0 Result Diagram: 11/14/16 1325 11/15/16 0233 Imaging Last Impressions Chest X-Ray 11/14/16 1332 Signed Impressions: Service Date/Time: Monday, November 14, 2016 13:29 - CONCLUSION: Stable chest, negative for acute process. Giorgio Marks MD FACR Objective Remarks GENERAL: This is a well-nourished, well-developed patient, in no apparent distress. CARDIOVASCULAR: Regular rate and regular rhythm without murmurs, gallops, or rubs. RESPIRATORY: Clear to auscultation. Breath sounds equal bilaterally. No wheezes , rales, or rhonchi. GASTROINTESTINAL: Abdomen soft, non-tender, nondistended. Normal, active bowel sounds MUSCULOSKELETAL: Extremities without clubbing, cyanosis, or edema. NEURO: Alert & Oriented x4 to person, place, time, situation. Moves all ext x4 Procedures none Medications and IVs Current Medications Adenosine (Adenocard Inj) 18 mg STK-MED ONCE .ROUTE ; Start 11/14/16 at 13:25; Stop 11/14/16 at 13:26; Status DC Sodium Chloride 2 ml 2 ml UNSCH PRN IVF FLUSH AFTER USING IV ACCESS; Start at 13:45 Sodium Chloride (NS 1000 ml Inj) 1,000 ml @ 999 mls/hr BOLUS ONCE IV Last administered on 11/14/16 13:48; Start 11/14/16 at 13:45; Stop 11/14/16 at 14:45 ; Status DC Adenosine 6 mg 6 mg ONCE ONCE IV PUSH Last administered on 11/14/16 13:37; Start 11/14/16 at 13:45; Stop 11/14/16 at 13:46; Status DC Sodium Chloride (NS 1000 ml Inj) 1,000 ml @ 84 mls/hr [id number] IV Last administered on 11/14/16 18:27; Start 11/14/16 at 15:15 Ondansetron HCl (Zofran Inj) 4 mg Q8HR PRN IV PUSH NAUSEA; Start 11/14/16 at 15 :15 Aspirin (Ecotrin Ec) 162 mg ONCE ONCE PO Last administered on 11/14/16 16:15 ; Start 11/14/16 at 15:30; Stop 11/14/16 at 15:35; Status DC Miscellaneous Information "PNEUMOVAX VACCINE GI... ONCE ONCE .XX ; Start at 10:00; Stop 11/15/16 at 10:01; Status DC Miscellaneous Information "INFLUENZA VACCAINE OUT... ONCE ONCE .XX ; Start 11/15 at 09:00; Stop 11/15/16 at 09:01; Status DC Potassium Chloride (KCl) 40 meq ONCE ONCE PO Last administered on 11/15/16 10: 40; Start 11/15/16 at 09:30; Stop 11/15/16 at 09:31; Status DC A/P Assessment and Plan A/P - SVT - converted to sinus rhythm after a dose of Adenosine in ER- cardiology consult appreciated and recommended outpatient f/u with ( information was given to the patient). -elevated troponin- due to SVT- awaiting stress test. cardiology consult appreciated. -acute kidney injury;resolved. -mild hypokalemia replaced. Discharge Planning dc home later today if the stress test is negative. f/u; pcp and cardiology. see med list. d/w the patient. Mala Wilhelm MD Nov 15, 2016 11:14
--- NOTE | 2016-11-15 11:20 | ECHRPT ---
Indication: cad CONCLUSIONS Normal left ventricular size. Wall thickness is normal. The left ventricular systolic function is normal with an estimated ejection fraction in the range 50 -55% No definite regional wall motion abnormalities are present. There was limited left ventricular wall motion assessment due to poor endocardial visualization. Trace mitral valve regurgitation. The aortic valve is not well visualized. No aortic valve stenosis. No aortic valve regurgitation. There is trace tricuspid valve regurgitation. The pulmonary valve is not well visualized. BP: / HR: Rhythm: MEASUREMENTS (Male / Female) Normal Values Technical Quality: Technically difficult study, Fa ir 2D ECHO LV Diastolic Diameter PLAX 4.0 cm 4.2 - 5.9 / 3.9 - 5.3 cm LV Systolic Diameter PLAX 3.1 cm IVS Diastolic Thickness 1.0 cm 0.6 - 1.0 / 0.6 - 0.9 cm LVPW Diastolic Thickness 1.2 cm 0.6 - 1.0 / 0.6 - 0.9 cm LV Relative Wall Thickness 0.5 RV Internal Dim ED PLAX 2.4 cm M-MODE Aortic Root Diameter MM 3.4 cm LA Systolic Diameter MM 2.8 cm LA Ao Ratio MM 0.8 AV Cusp Separation MM 1.9 cm DOPPLER Mitral E Point Velocity 54.8 cm/s Mitral A Point Velocity 48.9 cm/s Mitral E to A Ratio 1.1 LV E' Lateral Velocity 11.9 cm/s Mitral E to LV E' Lateral Ratio 4.6 LV E' Septal Velocity 10.2 cm/s Mitral E to LV E' Septal Ratio 5.4 TR Peak Velocity 274.0 cm/s TR Peak Gradient 30.0 mmHg FINDINGS LEFT VENTRICLE Normal left ventricular size. Wall thickness is normal. The left ventricular systolic function is normal with an estimated ejection fraction in the range 50 -55% No definite regional wall motion abnormalities are present. There was limited left ventricular wall motion assessment due to poor endocardial visualization. RIGHT VENTRICLE Normal right ventricular size and systolic function. LEFT ATRIUM The left atrial size is normal. RIGHT ATRIUM The right atrial size is normal. ATRIAL SEPTUM Normal atrial septal thickness without atrial level shunting by limited color doppler interrogation. AORTA The aortic root and proximal ascending aorta are normal in size on limited imaging. MITRAL VALVE Structurally normal mitral valve. Trace mitral valve regurgitation. AORTIC VALVE The aortic valve is not well visualized. No aortic valve stenosis. No aortic valve regurgitation. TRICUSPID VALVE Structurally normal tricuspid valve. There is trace tricuspid valve regurgitation. PULMONARY VALVE The pulmonary valve is not well visualized. VESSELS The inferior vena cava is normal in size. PERICARDIUM No pericardial effusion. Linwood Sal MD (Electronically Signed) Final Date:15 November 2016 11:19
[2016-11-15 12:00] VITALS: BP 124/79; PULSE 52; RESP 18; TEMP 98.4; O2SAT 98
[2016-11-15] MEDS ORDERED: REGADENOSON INJ 0.4 MG/5 ML SYR ONE (12:17)
--- NOTE | 2016-11-15 13:26 | RADRPT ---
EXAM DATE/TIME: 11/15/2016 11:51 [facility] COMPARISON: No previous studies available for comparison. INDICATIONS : Dizziness and palpitations with elevated troponins. Abnormal EKG. Coronary artery disease. DOSE: 25.4 mCi Tc99m Myoview at stress. 8.5 mCi Tc99m Myoview at rest. 0.4 mg Lexiscan STRESS SYMPTOMS: None noted. EJECTION FRACTION: 59% MEDICAL HISTORY : None SURGICAL HISTORY : Appendectomy. Right knee and left ankle. ENCOUNTER: Initial ACUITY: 1 day PAIN SCALE: 0/10 LOCATION: chest TECHNIQUE: The patient underwent pharmacologic stress with infusion of prescribed dose. Continuous ECG tracing was monitored during stress. Gated SPECT imaging was performed after stress and conventional SPECT i maging was performed at rest. The examination was performed on a SPECT/CT scanner, both attenuation and non-corrected datasets were reviewed. FINDINGS: DISTRIBUTION: The maximum perfused segment at stress is in the inferior wall. PERFUSION STUDY: The pattern of perfusion at stress is within normal limits. GATED STUDY: There is intact wall motion and thickening without hypokinetic or dyskinetic segments. CONCLUSION: 1. No significant reversibility to suggest ischemia. 2. Normal wall motion and ejection fraction 59%. RISK CATEGORY: Low (<1% Annual Mortality Rate) Eduin Bautista MD on November 15, 2016 at 13:22 Board Certified Radiologist. This report was verified electronically.
[2016-11-15 16:00] VITALS: BP 120/86; PULSE 53; RESP 18; TEMP 98.1; O2SAT 97
== END 2016-11-15 19:00 | disposition home or self-care (01) | DRG 309 ==
LOC: NEPC 13:10 → NEDA 15:11 → N04A 17:57
PROVIDERS: ADMIT Internal Medicine; ATTEND Internal Medicine
DX: I47.1 Supraventricular tachycardia (principal); N17.9 Acute kidney failure, unspecified; R74.8 Abnormal levels of other serum enzymes; E87.6 Hypokalemia
CPT/HCPCS: 71010; 78452; 80048; 82550; 82552; 83735; 84484; 85025; 85610; 85730; 93005; 93017; 93306; 96360; A9502; J0153; J2785; J7030

== ENCOUNTER 2017-10-24 11:42 | Inpatient (IN) | payer SELFPAY ==
[~2017-10-24] VITALS: Ht 165.1 cm; Wt 48.0 kg
[2017-10-24] VITALS (12 sets, daily range): BP systolic 89–112; BP diastolic 54–78; PULSE 78–122; RESP 18–22; TEMP 98.6–100.3; O2SAT 88–100
--- NOTE | 2017-10-24 11:54 | PD ---
HPI Chief Complaint: Respiratory Symptoms Time Seen by Provider: 11:53 Travel History International Travel<30 days: No Contact w/Intl Traveler<30days: No Traveled to known affect area: No History of Present Illness HPI Patient states that she is not a smoker, she has no history of asthma, or COPD and per patient she is also not oxygen dependent. However over the last 2 days she has had this continuous cough that is only productive of whitish sputum. Patient has been feeling chest tightness chest heaviness as well. Any type of exercise including just walking a few steps worsens her shortness of breath. Nothing seems to alleviate it. Patient denies any fever or rash or neck stiffness chest pain, abdominal pain or flank pain, no nausea vomiting or diarrhea, patient denies sore throat runny nose. No known drug allergies Past medical history significant for appendectomy, right knee and left ankle orthopedic surgery, and apparently had an episode of alcohol withdrawal seizures PFSH Past Medical History Arthritis: No Autoimmune Disease: No Anxiety: No Depression: No Cancer: No Cardiovascular Problems: No Cerebrovascular Accident: No Diminished Hearing: No Endocrine: No Gastrointestinal Disorders: No Genitourinary: No Immune Disorder: No Implanted Vascular Access Dvce: No Musculoskeletal: No Neurologic: Yes Psychiatric: No Reproductive: No Respiratory: No Immunizations Current: Yes Migraines: No Seizures: Yes (ETOH WITHDRAWAL) Past Surgical History Abdominal Surgery: Yes (appendeectomy) Appendectomy: Yes Cardiac Surgery: No Ear Surgery: No Endocrine Surgery: No Eye Surgery: No Genitourinary Surgery: No Gynecologic Surgery: No Neurologic Surgery: No Oral Surgery: No Thoracic Surgery: No Other Surgery: Yes Social History Alcohol Use: Yes ("FEW TIMES A WEEK" ) Tobacco Use: No Substance Use: No Allergies-Medications (Allergen,Severity, Reaction): Coded Allergies: No Known Allergies (Verified Adverse Reaction, Unknown, 10/24/17) Reported Meds & Prescriptions Reported Meds & Active Scripts Active No Active Prescriptions or Reported Medications Review of Systems General / Constitutional: No: Fever Eyes: No: Visual changes HENT: No: Headaches Cardiovascular: No: Chest Pain or Discomfort Respiratory: Positive: Cough, Wheezing Gastrointestinal: No: Abdominal Pain Genitourinary: No: Dysuria Musculoskeletal: No: Pain Skin: No Rash Neurologic: No: Weakness Psychiatric: No: Depression Endocrine: No: Polydipsia Hematologic/Lymphatic: No: Easy Bruising Physical Exam Narrative GENERAL: SKIN: Warm and dry. HEAD: Atraumatic. Normocephalic. EYES: Pupils equal and round. No scleral icterus. No injection or drainage. ENT: No nasal bleeding or discharge. Mucous membranes pink and moist. NECK: Trachea midline. No JVD. CARDIOVASCULAR: Regular rate and rhythm. RESPIRATORY: Suprasternal accessory muscle use. Decreased tidal volume, bilateral rhonchi heard throughout ... Patient was tripoding and speaking 1 word dyspnea GASTROINTESTINAL: Abdomen soft, non-tender, nondistended MUSCULOSKELETAL: Extremities without clubbing, cyanosis, or edema. No obvious deformities. NEUROLOGICAL: Awake and alert. No obvious cranial nerve deficits. Motor grossly within normal limits. Five out of 5 muscle strength in the arms and legs. Normal speech. PSYCHIATRIC: Appropriate mood and affect; insight and judgment normal. Data Data Last Documented VS Vital Signs Date Time Temp Pulse Resp B/P (MAP) Pulse Ox O2 Delivery O2 Flow Rate FiO2 10/24/17 13:23 90 20 101/70 (80) 100 Nasal Cannula 4.00 10/24/17 11:45 100.3 Orders Orders Electrocardiogram (10/24/17 11:57) B-Type Natriuretic Peptide (10/24/17 11:57) Ckmb (Isoenzyme) Profile (10/24/17 11:57) Complete Blood Count With Diff (10/24/17 11:57) Comprehensive Metabolic Panel (10/24/17 11:57) D-Dimer (10/24/17 11:57) Prothrombin Time / Inr (Pt) (10/24/17 11:57) Act Partial Throm Time (Ptt) (10/24/17 11:57) Troponin I (10/24/17 11:57) Lipase (10/24/17 11:57) Chest, Single Ap (10/24/17 11:57) Ecg Monitoring (10/24/17 11:57) Iv Access Insert/Monitor (10/24/17 11:57) Oximetry (10/24/17 11:57) Oxygen Administration (10/24/17 11:57) Sodium Chloride 0.9% Flush (Ns Flush) (10/24/17 12:00) Ct Pulmonary Angiogram (10/24/17 11:57) Arterial Blood Gas (Abg) (10/24/17 11:57) Influenzae A/B Antigen (10/24/17 11:57) Sodium Chloride 0.9% Flush (Ns Flush) (10/24/17 12:00) Lactic Acid Sepsis Protocol (10/24/17 11:57) Pneumococcal Urinary Antigen (10/24/17 11:57) Legionella Urinary Antigen (10/24/17 11:57) Sputum Culture And Gram Stain (10/24/17 11:57) Ceftriaxone Inj (Rocephin Inj) (10/24/17 12:00) Azithromycin Inj (Zithromax Inj) (10/24/17 12:00) Iohexol 350 Inj (Omnipaque 350 Inj) (10/24/17 13:04) Admit Order (Ed Use Only) (10/24/17 14:11) Labs Laboratory Tests Test 10/24/17 12:05 10/24/17 12:08 Blood Gas Puncture Site RT RADIAL Blood Gas Patient Temperature 98.6 Blood Gas HCO3 23 mmol/L Blood Gas Base Excess -0.4 mmol/L Blood Gas Oxygen Saturation 87 % Arterial Blood pH 7.45 Arterial Blood Partial Pressure CO2 34 mmHg Arterial Blood Partial Pressure O2 57 mmHG Arterial Blood Oxygen Content 16.0 Vol % Arterial Blood Carboxyhemoglobin 1.9 % Arterial Blood Methemoglobin 0.7 % Blood Gas Hemoglobin 13.1 G/DL Oxygen Delivery Device ROOM AIR Blood Gas Inspired Oxygen 21 % White Blood Count 9.1 TH/MM3 Red Blood Count 4.07 MIL/MM3 Hemoglobin 13.3 GM/DL Hematocrit 38.1 % Mean Corpuscular Volume 93.7 FL Mean Corpuscular Hemoglobin 32.6 PG Mean Corpuscular Hemoglobin Concent 34.8 % Red Cell Distribution Width 16.9 % Platelet Count 228 TH/MM3 Mean Platelet Volume 7.9 FL Neutrophils (%) (Auto) 69.4 % Lymphocytes (%) (Auto) 15.6 % Monocytes (%) (Auto) 13.7 % Eosinophils (%) (Auto) 0.6 % Basophils (%) (Auto) 0.7 % Neutrophils # (Auto) 6.3 TH/MM3 Lymphocytes # (Auto) 1.4 TH/MM3 Monocytes # (Auto) 1.2 TH/MM3 Eosinophils # (Auto) 0.1 TH/MM3 Basophils # (Auto) 0.1 TH/MM3 CBC Comment DIFF FINAL Differential Comment Prothrombin Time 10.7 SEC Prothromb Time International Ratio 1.1 RATIO Activated Partial Thromboplast Time 34.2 SEC D-Dimer Quantitative (PE/DVT) 0.71 MG/L FEU Blood Urea Nitrogen 9 MG/DL Creatinine 0.72 MG/DL Random Glucose 96 MG/DL Total Protein 7.8 GM/DL Albumin 2.7 GM/DL Calcium Level 8.3 MG/DL Alkaline Phosphatase 181 U/L Aspartate Amino Transf (AST/SGOT) 60 U/L Alanine Aminotransferase (ALT/SGPT) 35 U/L Total Bilirubin 0.6 MG/DL Sodium Level 131 MEQ/L Potassium Level 4.6 MEQ/L Chloride Level 96 MEQ/L Carbon Dioxide Level 25.2 MEQ/L Anion Gap 10 MEQ/L Estimat Glomerular Filtration Rate 86 ML/MIN Lactic Acid Level 0.8 mmol/L Total Creatine Kinase 29 U/L Troponin I LESS THAN 0.02 NG/ML B-Type Natriuretic Peptide 60 PG/ML Lipase 131 U/L MDM Medical Decision Making Medical Screen Exam Complete: Yes Emergency Medical Condition: Yes Medical Record Reviewed: Yes Interpretation(s) Pulse ox: Excellent Pleth wave, oximetry reading of 86-88% on room air which is consistent with hypoxemia, with hypoxemia on a patient does not oxygen dependent , prompted a an ABG as well as supplemental oxygen being provided right away, as well as a workup to evaluate reasons or causes for her moderate to severe hypoxemia. ABG was performed after the patient had already been on supplemental oxygen of 4 L for approximately 10-15 minutes. And the oxygen was turned off for probably 60 seconds or so before the ABG was drawn, and still under those circumstances the ABG showed a pH of 7.449, PCO2 of 33.8 and a PaO2 of 57.1 EKG shows normal sinus rhythm, 97 bpm, normal intervals, some motion artifact noted, however no evidence of any ST elevation MA Differential Diagnosis Pulmonary embolus versus pneumonia versus possible COPD and diagnosed versus hypoxemic respiratory failure versus pericardial effusion versus pneumocystis JerOVECI(PCP-HIV RELATED) Narrative Course CBC shows no leukocytosis, no anemia, normal platelet count, no left shift Coagulation profile is within normal limits, d-dimer is elevated at 0.71 Blood gas on room air please see above Patient has a normal lactic acid of 0.8, mild hyponatremia 131, normal kidney and pancreatic enzymes. Mildly elevated AST of 60, ALT 35, alk phos 181, total bilirubin normal at 0.6 First set of cardiac enzymes negative Normal beta natruretic peptide of 60 Negative flu test Chest x-ray shows linear atelectasis of the left lung Pending CT chest [place] [address] chest was read by radiologist as negative for pulmonary embolus, infiltrates in the anterior mid lungs and left lower lung Due to the severe hypoxemia and widened AA gradient there is high suspicion for HIV/AIDS, during admission the patient will be tested Diagnosis Primary Impression: Acute hypoxemic respiratory failure Additional Impression: Bilobar pneumonia Admitting Information Admitting Physician Requests: Admit Scripts No Active Prescriptions or Reported Meds Robert Tao MD Oct 24, 2017 11:54
[2017-10-24] MEDS ORDERED: SODIUM CHLORIDE 0.9% FLUSH 10 ML FLUSH IVF PRN ×2 (12:00)
[2017-10-24] MEDS ORDERED: AZITHROMYCIN INJ 500 MG in SODIUM CHLOR 0.9% 250 ML INJ 250 ML IV ONE (12:00)
[2017-10-24] MEDS ORDERED: cefTRIAXone INJ 1,000 MG in SODIUM CHLORIDE 0.9% INJ 100 ML IV ONE (12:00)
[2017-10-24 12:32] LABS: AUTOMATED NEUTROPHIL # 6.3 TH/MM3 (1.8-7.7); BASOPHIL # 0.1 TH/MM3 (0-0.2); BASOPHIL % 0.7 % (0.0-2.0); EOSINOPHIL # 0.1 TH/MM3 (0-0.4); EOSINOPHIL % 0.6 % (0.0-4.0); HEMATOCRIT 38.1 % (35.0-46.0); HEMOGLOBIN 13.3 GM/DL (11.6-15.3); LYMPH % 15.6 % (9.0-44.0); LYMPHOCYTE # 1.4 TH/MM3 (1.0-4.8); MEAN CELL VOLUME 93.7 FL (80.0-100.0); MEAN CORPUSCULAR HEMOGLOBIN 32.6 PG (27.0-34.0); MEAN CORPUSCULAR HGB CONC 34.8 % (32.0-36.0); MEAN PLATELET VOLUME 7.9 FL (7.0-11.0); MONO % 13.7 % (0.0-8.0); MONOCYTE # 1.2 TH/MM3 (0-0.9); NEUT % 69.4 % (16.0-70.0); PLATELET COUNT 228 TH/MM3 (150-450); RED BLOOD COUNT 4.07 MIL/MM3 (4.00-5.30); RED CELL DISTRIBUTION WIDTH 16.9 % (11.6-17.2); WHITE BLOOD COUNT 9.1 TH/MM3 (4.0-11.0)
[2017-10-24] MEDS: SODIUM CHLOR 0.9% 1000 ML INJ 1,000 ML IV SCH ×2 (12:38→21:37)
--- NOTE | 2017-10-24 12:44 | RADRPT ---
EXAM DATE: 10/24/2017 12:23 PM EDT AGE/SEX: 46 years / Female INDICATIONS: Hypoxemia. Cough. CLINICAL DATA: This is the patient's initial encounter. Patient reports that signs and symptoms have been present for 1 week and indicates a pain score of 0/10. MEDICAL/SURGICAL HISTORY: . Seizure. . Appendectomy. Right knee and left ankle. COMPARISON: [facility] [place], CHEST SINGLE AP, 11/14/2016. . FINDINGS: Linear atelectasis at the left base. Slight elevation of the left hemidiaphragm. Lungs are otherwise clear. Tiny calcified granuloma right midlung. Osseous structures are intact. Heart size normal. CONCLUSION: Linear atelectasis left lung. Electronically signed by: Jose Schaffer MD 10/24/2017 12:43 PM EDT
[2017-10-24 12:47] LABS: INTERNATIONAL NORMALIZED RATIO 1.1 RATIO; PROTHROMBIN TIME - PATIENT 10.7 SEC (9.8-11.6)
[2017-10-24 12:48] LABS: D-DIMER 0.71 MG/L FEU (0.00-0.50)
[2017-10-24 13:00] LABS: ALBUMIN 2.7 GM/DL (3.4-5.0); AST (GOT) 60 U/L (15-37); BICARBONATE 25.2 MEQ/L (21.0-32.0); BLOOD UREA NITROGEN 9 MG/DL (7-18); CALCIUM 8.3 MG/DL (8.5-10.1); CHLORIDE 96 MEQ/L (98-107); CREATININE 0.72 MG/DL (0.50-1.00); GLOMERULAR FILTRATION RATE 86 ML/MIN (>89); GLUCOSE,RANDOM 96 MG/DL (74-106); SODIUM (NA) 131 MEQ/L (136-145)
[2017-10-24] MEDS ORDERED: IOHEXOL 350 MG/ML 10 ML VIAL (for RAD DIAG) IVCONTRAST ONE (13:04)
[2017-10-24 13:05] LABS: ALKALINE PHOSPHATASE 181 U/L (45-117); ALT (GPT) 35 U/L (10-53); TOTAL BILIRUBIN ADULT 0.6 MG/DL (0.2-1.0); TOTAL PROTEIN 7.8 GM/DL (6.4-8.2); TROPONIN I LESS THAN 0.02 NG/ML (0.02-0.05)
--- NOTE | 2017-10-24 13:27 | RADRPT ---
EXAM DATE: 10/24/2017 1:21 PM EDT AGE/SEX: 46 years / Female INDICATIONS: Shortness of breath for two days. CLINICAL DATA: This is the patient's initial encounter. Patient reports that signs and symptoms have been present for 1 day and indicates a pain score of 0/10. MEDICAL/SURGICAL HISTORY: None. Appendectomy. RADIATION DOSE: 7.37 CTDI (mGy) COMPARISON: [facility] – [place], CHEST SINGLE AP, 10/24/2017. . TECHNIQUE: Volumetric scanning was performed using a multi-row detector CT scanner during bolus infu yareli of 70 ml Omnipaque 350 (iohexol) nonionic water-soluble contrast as a single exam dose. The jody a was post processed with a variety of visualization algorithms including full volume maximum intensi ty projection and sliding thin slab reformation. Using automated exposure control and adjustment of the mA and/or kV according to patient size, radiation dose was kept as low as reasonably achievable t o obtain optimal diagnostic quality images. FINDINGS: Pulmonary Arteries: No filling defects are seen in the pulmonary arteries out to the subsegmental ve ssels. The left and right pulmonary arteries are normal in diameter. Lung: Some patchy nonconsolidative infiltrates in the lower left lung and in the anterior mid lungs. 5 mm densely calcified granuloma anterolateral right midlung. No evidence of pneumothorax. Effusion: None. Mediastinum: No evidence of mediastinal or hilar adenopathy. Other: The axilla is unremarkable. CONCLUSION: 1. The study is negative for pulmonary embolism. 2. Linear atelectasis or infiltrates in the anterior mid lungs and left lower lung. Electronically signed by: Shelton Wilson MD 10/24/2017 1:26 PM EDT
--- NOTE | 2017-10-24 14:39 | EKG ---
Date Performed: 10/24/2017 Time Performed: 12:18:21 PTAGE: 46 years EKG: Sinus rhythm NORMAL ECG PREVIOUS TRACING : 11/15/2016 06.29 Since the previous tracing, no significant change noted DOCTOR: Humphrey Caldera Interpretating Date/Time 10/24/2017 14:37:42
[2017-10-24] MEDS ORDERED: SODIUM CHLOR 0.9% 1000 ML INJ 1,000 ML IV SCH (15:07)
[2017-10-24] MEDS ORDERED: ACETAMINOPHEN 325 MG TAB PO PRN (15:15)
[2017-10-24] MEDS ORDERED: SODIUM CHLORIDE 0.9% FLUSH 10 ML FLUSH IV FLUSH PRN (15:15)
[2017-10-24] MEDS ORDERED: FLUCONAZOLE 200 MG TAB PO ONE (15:15)
[2017-10-24] MEDS ORDERED: NALOXONE HCL 0.4 MG/ML AMP IV PUSH PRN (15:15)
--- NOTE | 2017-10-24 15:43 | HHI.HP ---
HPI Service [facility] Hospitalists Primary Care Physician Unknown Admission Diagnosis HYPOXEMIC RESPIRATORY FAILURE REQUIRING SUPPL O2, BILOBAR PNEUMONIA Diagnoses: Chief Complaint: Cough, shortness of breath Travel History International Travel<30 Days: No Contact w/Intl Traveler <30 Da: No Traveled to Known Affected Are: No History of Present Illness This is a 46-year-old female with past medical history of mitral valve prolapse who presents to [facility] complaining of cough for the past 5 days associated with substernal chest pain which is nonradiating and brought up when she coughs. Chest pain is relieved when patient stops coughing. The patient also complains of shortness of breath however denies fevers or chills. The patient also states that she has noticed in the past 2 weeks a white plaques in her mouth associated with pain. The patient states that she has tried to scrub off the white plaques that she has over at her lips but when she does that she has some bleeding from them. Patient also states that over the past month she has lost over 20 pounds without wanting to lose them. The patient otherwise denies any diarrhea, abdominal pain, dysuria, skin lesion. ED physician states that the patient decided into the mid 80s without oxygen in the emergency department which improved with oxygen administration. The patient's oxygen is noted to drop into the mid 80s without oxygen during my interview. The patient denies any sick contacts or recent international travel. Review of Systems As per HPI, other systems reviewed by me and negative. Past Family Social History Past Medical History Mitral valve prolapse. History of alcohol abuse. Past Surgical History 1. Appendectomy. 2. Right knee arthroscopic surgery for meniscus repair. 3. Surgical repair of left thumb dislocation. Reported Medications None Allergies: Coded Allergies: No Known Allergies (Verified Adverse Reaction, Unknown, 10/24/17) Active Ordered Medications Current Medications Medications (Trade) Dose Ordered Sig/Tamera Route Start Time Stop Time Status Last Admin (NS Flush) 2 ml UNSCH PRN IVF 10/24/17 12:00 (NS Flush) 2 ml UNSCH PRN IVF 10/24/17 12:00 Family History Denies family history of cancer or diabetes. States her father had hypertension. Social History The patient denies smoking currently. States she used to smoke 1-2 cigarettes per day for a short time and quit 20 years ago. The patient states that she drinks alcohol on the weekends. The patient is single, does not have any children. The patient states that she is not currently sexually active. Physical Exam Vital Signs Vital Signs Date Time Temp Pulse Resp B/P (MAP) Pulse Ox O2 Delivery O2 Flow Rate FiO2 10/24/17 13:23 90 20 101/70 (80) 100 Nasal Cannula 4.00 10/24/17 12:05 110 21 112/78 (89) 98 Nasal Cannula 5.50 10/24/17 12:05 110 21 112/78 (89) 98 Nasal Cannula 5.50 10/24/17 12:05 98 Nasal Cannula 10/24/17 12:02 110 21 98 Nasal Cannula 5.50 10/24/17 11:45 100.3 122 22 106/75 (85) 88 Physical Exam GENERAL: This is a well-nourished, well-developed patient, in moderate respiratory distress. SKIN: No rashes, ecchymoses or lesions. Cool and dry. HEAD: Atraumatic. Normocephalic. No temporal or scalp tenderness. EYES: Pupils equal round and reactive. Extraocular motions intact. No scleral icterus. No injection or drainage. ENT: Nose without bleeding, purulent drainage or septal hematoma. Throat without erythema, tonsillar hypertrophy or exudate. Uvula midline. Airway patent. Mouth has white patches over the entire mouth, tongue hard and soft palate. NECK: Trachea midline. No JVD or lymphadenopathy. Supple, nontender, no meningeal signs. CARDIOVASCULAR: Regular rate and rhythm without murmurs, gallops, or rubs. RESPIRATORY: Breath sounds equal bilaterally. Mild crackles bilaterally. No wheezes, or rhonchi. GASTROINTESTINAL: Abdomen soft, non-tender, nondistended. No hepato-splenomegaly , or palpable masses. No guarding. MUSCULOSKELETAL: Extremities without clubbing, cyanosis, or edema. No joint tenderness, effusion, or edema noted. No calf tenderness. Negative Homans sign bilaterally. NEUROLOGICAL: Awake and alert. Cranial nerves II through XII intact. Motor and sensory grossly within normal limits. Five out of 5 muscle strength in all muscle groups. Normal speech. Laboratory Laboratory Tests Test 10/24/17 12:05 10/24/17 12:08 Blood Gas Puncture Site RT RADIAL Blood Gas Patient Temperature 98.6 Blood Gas HCO3 23 Blood Gas Base Excess -0.4 Blood Gas Oxygen Saturation 87 Arterial Blood pH 7.45 Arterial Blood Partial Pressure CO2 34 Arterial Blood Partial Pressure O2 57 Arterial Blood Oxygen Content 16.0 Arterial Blood Carboxyhemoglobin 1.9 Arterial Blood Methemoglobin 0.7 Blood Gas Hemoglobin 13.1 Oxygen Delivery Device ROOM AIR Blood Gas Inspired Oxygen 21 White Blood Count 9.1 Red Blood Count 4.07 Hemoglobin 13.3 Hematocrit 38.1 Mean Corpuscular Volume 93.7 Mean Corpuscular Hemoglobin 32.6 Mean Corpuscular Hemoglobin Concent 34.8 Red Cell Distribution Width 16.9 Platelet Count 228 Mean Platelet Volume 7.9 Neutrophils (%) (Auto) 69.4 Lymphocytes (%) (Auto) 15.6 Monocytes (%) (Auto) 13.7 Eosinophils (%) (Auto) 0.6 Basophils (%) (Auto) 0.7 Neutrophils # (Auto) 6.3 Lymphocytes # (Auto) 1.4 Monocytes # (Auto) 1.2 Eosinophils # (Auto) 0.1 Basophils # (Auto) 0.1 CBC Comment DIFF FINAL Differential Comment Prothrombin Time 10.7 Prothromb Time International Ratio 1.1 Activated Partial Thromboplast Time 34.2 D-Dimer Quantitative (PE/DVT) 0.71 Blood Urea Nitrogen 9 Creatinine 0.72 Random Glucose 96 Total Protein 7.8 Albumin 2.7 Calcium Level 8.3 Alkaline Phosphatase 181 Aspartate Amino Transf (AST/SGOT) 60 Alanine Aminotransferase (ALT/SGPT) 35 Total Bilirubin 0.6 Sodium Level 131 Potassium Level 4.6 Chloride Level 96 Carbon Dioxide Level 25.2 Anion Gap 10 Estimat Glomerular Filtration Rate 86 Lactic Acid Level 0.8 Total Creatine Kinase 29 Troponin I LESS THAN 0.02 B-Type Natriuretic Peptide 60 Lipase 131 Date/Time Source Procedure Growth Status 10/24/17 12:05 Nasal Washing Influenza Types A,B Antigen (JUSTIN) - Final NEGATIVE FOR FLU A AND B ANTIGEN.... Complete Result Diagram: 10/24/17 1208 10/24/17 1208 Imaging Last 72 hours Impressions Chest X-Ray 10/24/17 1157 Signed Impressions: CONCLUSION: Linear atelectasis left lung. CT Angiography 10/24/17 1157 Signed Impressions: CONCLUSION: 1. The study is negative for pulmonary embolism. 2. Linear atelectasis or infiltrates in the anterior mid lungs and left lower lung. Caprini VTE Risk Assessment Caprini VTE Risk Assessment: Mod/High Risk (score >= 2) Caprini Risk Assessment Model Point Value = 1 Point Value = 2 Point Value = 3 Point Value = 5 Age 41-60 Minor surgery BMI > 25 kg/m2 Swollen legs Varicose veins or History of unexplained or recurrent spontaneous Oral contraceptives or hormone replacement Sepsis (< 1 month) Serious lung disease, including pneumonia (< 1 month) Abnormal pulmonary function Acute myocardial infarction Congestive heart failure (< 1 month) History of inflammatory bowel disease Medical patient at bed rest Age 61-74 Arthroscopic surgery Major open surgery (> 45 min) Laparoscopic surgery (> 45 min) Malignancy Confined to bed (> 72 hours) Immobilizing plaster cast Central venous access Age >= 75 History of VTE Family history of VTE Factor V Leiden Prothrombin [id number] Lupus anticoagulant Anticardiolipin antibodies Elevated serum homocysteine Heparin-induced thrombocytopenia Other congenital or acquired thrombophilia Stroke (< 1 month) Elective arthroplasty Hip, pelvis, or leg fracture Acute spinal cord injury (< 1 month) Prophylaxis Regimen Total Risk Factor Score Risk Level Prophylaxis Regimen 0-1 Low Early ambulation 2 Moderate Order ONE of the following: *Sequential Compression Device (SCD) *Heparin 5000 units SQ BID 3-4 Higher Order ONE of the following medications: *Heparin 5000 units SQ TID *Enoxaparin/Lovenox 40 mg SQ daily (WT < 150 kg, CrCl > 30 mL/min) *Enoxaparin/Lovenox 30 mg SQ daily (WT < 150 kg, CrCl > 10-29 mL/min) *Enoxaparin/Lovenox 30 mg SQ BID (WT < 150 kg, CrCl > 30 mL/min) AND/OR *Sequential Compression Device (SCD) 5 or more Highest Order ONE of the following medications: *Heparin 5000 units SQ TID (Preferred with Epidurals) *Enoxaparin/Lovenox 40 mg SQ daily (WT < 150 kg, CrCl > 30 mL/min) *Enoxaparin/Lovenox 30 mg SQ daily (WT < 150 kg, CrCl > 10-29 mL/min) *Enoxaparin/Lovenox 30 mg SQ BID (WT < 150 kg, CrCl > 30 mL/min) AND *Sequential Compression Device (SCD) Assessment and Plan Problem List: (1) Sepsis ICD Code: A41.9 - Sepsis, unspecified organism Plan: Present on admission, the patient presented with fever of 100.3 and heart rate of 122 as well as a respiratory rate of 22. Sepsis likely secondary to pneumonia. Chest x-ray reviewed by me shows linear atelectasis of the left lung. CT pulmonary angiogram was negative for pulmonary embolism. Linear atelectasis or infiltrates in the anterior mid lungs and left lower lung field described. Patient was given IV Rocephin IV azithromycin for suspected community-acquired pneumonia. Continue IV antibiotics as above. We will place on IV fluids, telemetry. Check blood cultures. (2) Acute hypoxemic respiratory failure ICD Code: J96.01 - Acute respiratory failure with hypoxia Status: Acute Plan: Patient with oxygen saturation into the mid 80s on room air. ABG showed a pH of 7.45, PCO2 34, PO2 57 with an oxygen saturation of 87% on room air. Treated with supplemental oxygen to keep oxygen saturation more than 90%. We will place on DuoNeb inhaled treatments. Monitor oxygen saturation. (3) Bilateral pneumonia ICD Code: J18.9 - Pneumonia, unspecified organism Status: Acute Plan: As described on CT pulmonary angiogram. IV antibiotics as above. Supplemental oxygen. Duo nebs. Check pneumococcal urine antigen, Legionella urine antigen, mycoplasma pneumonia. Concern for PCP pneumonia as the patient has oral thrush as well. Check HIV antibody screen. (4) Hyponatremia ICD Code: E87.1 - Hypo-osmolality and hyponatremia Plan: Likely due to hypovolemic hyponatremia secondary to dehydration. Treated with IV normal saline. Monitor BMP. (5) Weight loss ICD Code: R63.4 - Abnormal weight loss Plan: Intended weight loss in the last month. Consult dietitian. (6) Oral thrush ICD Code: B37.0 - Candidal stomatitis Status: Acute Plan: Check HIV antibody screen. Will Rx Magic mouthwash and oral fluconazole. Assessment and Plan Lovenox for DVT prophylaxis. Protonix for GI prophylaxis. Code Status Full code Discussed Condition With ED physician, patient. Physician Certification 2 Midnight Certification Type: Admission for Inpatient Services Order for Inpatient Services The services are ordered in accordance with Medicare regulations or non- Medicare payer requirements, as applicable. In the case of services not specified as inpatient-only, they are appropriately provided as inpatient services in accordance with the 2-midnight benchmark. Estimated LOS (days): 3 days is the estimated time the patient will need to remain in the hospital, assuming treatment plan goals are met and no additional complications. Post-Hospital Plan: Home Problem Qualifiers (1) Bilateral pneumonia: Qualified Codes: J18.9 - Pneumonia, unspecified organism Chase Stockton MD Oct 24, 2017 15:43
[2017-10-24] MEDS ORDERED: LORazepam 2 MG/ML VIAL IV PUSH PRN ×4 (15:45)
[2017-10-24] MEDS ORDERED: FLUMAZENIL 0.5 MG/5 ML VIAL IV PUSH PRN (15:45)
[2017-10-24] MEDS ORDERED: LORazepam 1 MG TAB PO PRN (15:45)
[2017-10-24] MEDS ORDERED: LORazepam 2 MG TAB PO PRN (15:45)
[2017-10-24] MEDS ORDERED: AZITHROMYCIN INJ 500 MG in SODIUM CHLOR 0.9% 250 ML INJ 250 ML IV SCH (16:00)
[2017-10-24] MEDS ORDERED: cefTRIAXone INJ 2,000 MG in SODIUM CHLORIDE 0.9% INJ 100 ML IV SCH (17:00)
[2017-10-24] MEDS: NYSTAT/DIPHENHY/LIDO MOUTHWASH (Adult) 120ML SWISH-SWAL SCH ×2 (17:50→21:36)
[2017-10-24] MEDS: ENOXAPARIN SODIUM 40 MG/0.4 ML SYRINGE SQ SCH (18:03)
[2017-10-24] MEDS: SODIUM CHLORIDE 0.9% FLUSH 10 ML FLUSH IV FLUSH SCH (21:00)
[2017-10-25] VITALS (9 sets, daily range): BP systolic 99–115; BP diastolic 64–77; PULSE 65–77; RESP 16–18; TEMP 97.8–99.2; O2SAT 94–100
[2017-10-25] MEDS: SODIUM CHLOR 0.9% 1000 ML INJ 1,000 ML IV SCH ×2 (07:25→17:35)
[2017-10-25] MEDS: SODIUM CHLORIDE 0.9% FLUSH 10 ML FLUSH IV FLUSH SCH ×2 (09:00→20:59)
[2017-10-25] MEDS: FLUCONAZOLE 100 MG TAB PO SCH (09:10)
[2017-10-25] MEDS: NYSTAT/DIPHENHY/LIDO MOUTHWASH (Adult) 120ML SWISH-SWAL SCH ×4 (09:10→20:59)
[2017-10-25 09:14] LABS: AUTOMATED NEUTROPHIL # 3.2 TH/MM3 (1.8-7.7); BASOPHIL % 0.9 % (0.0-2.0); EOSINOPHIL # 0.1 TH/MM3 (0-0.4); EOSINOPHIL % 1.6 % (0.0-4.0); LYMPH % 16.2 % (9.0-44.0); LYMPHOCYTE # 0.8 TH/MM3 (1.0-4.8); MEAN CELL VOLUME 94.3 FL (80.0-100.0); MEAN CORPUSCULAR HEMOGLOBIN 33.3 PG (27.0-34.0); MEAN CORPUSCULAR HGB CONC 35.3 % (32.0-36.0); MEAN PLATELET VOLUME 7.8 FL (7.0-11.0); MONO % 15.2 % (0.0-8.0); MONOCYTE # 0.7 TH/MM3 (0-0.9); NEUT % 66.1 % (16.0-70.0); PLATELET COUNT 203 TH/MM3 (150-450); RED CELL DISTRIBUTION WIDTH 16.9 % (11.6-17.2); WHITE BLOOD COUNT 4.8 TH/MM3 (4.0-11.0)
[2017-10-25 09:49] LABS: ALBUMIN 2.2 GM/DL (3.4-5.0); BICARBONATE 24.6 MEQ/L (21.0-32.0); BLOOD UREA NITROGEN 8 MG/DL (7-18); CALCIUM 7.7 MG/DL (8.5-10.1); CHLORIDE 101 MEQ/L (98-107); CREATININE 0.55 MG/DL (0.50-1.00); GLOMERULAR FILTRATION RATE 118 ML/MIN (>89); GLUCOSE,RANDOM 116 MG/DL (74-106); SODIUM (NA) 134 MEQ/L (136-145)
[2017-10-25 09:50] LABS: ALT (GPT) 31 U/L (10-53); AST (GOT) 55 U/L (15-37)
[2017-10-25 09:53] LABS: ALKALINE PHOSPHATASE 147 U/L (45-117); TOTAL BILIRUBIN ADULT 0.3 MG/DL (0.2-1.0); TOTAL PROTEIN 6.5 GM/DL (6.4-8.2)
[2017-10-25] MEDS ORDERED: PNEUMOCOCCAL POLYVALENT INJ 25 MCG/0.5 ML SYR IM ONE (10:00)
[2017-10-25] MEDS ORDERED: INFLUENZA VIRUS VACCINE (QUADRIVALENT) 0.5 ML SYR IM ONE ×2 (10:00→20:00)
[2017-10-25] MEDS: AZITHROMYCIN INJ 500 MG in SODIUM CHLOR 0.9% 250 ML INJ 250 ML IV SCH (12:15)
[2017-10-25] MEDS: cefTRIAXone INJ 2,000 MG in SODIUM CHLORIDE 0.9% INJ 100 ML IV SCH (16:14)
[2017-10-25] MEDS: ENOXAPARIN SODIUM 40 MG/0.4 ML SYRINGE SQ SCH (16:16)
--- NOTE | 2017-10-25 17:03 | HHI.PR ---
Subjective Remarks Deferred entry, the patient was seen earlier at 11:45 AM. The patient states that she feels better. Denies chest pain or shortness of breath. Patient on 4 L nasal cannula. Objective Vitals Vital Signs Date Time Temp Pulse Resp B/P (MAP) Pulse Ox O2 Delivery O2 Flow Rate FiO2 10/25/17 12:00 97.8 67 16 115/72 (86) 98 10/25/17 09:20 94 21 10/25/17 08:00 97.9 66 16 107/70 (82) 100 10/25/17 04:00 77 10/25/17 04:00 98.0 68 18 107/64 (78) 98 10/25/17 00:00 99.2 72 18 99/68 (78) 99 10/24/17 23:55 79 10/24/17 21:12 78 10/24/17 21:00 96/60 (72) 10/24/17 19:40 98.6 88 18 89/54 (66) 100 10/24/17 18:13 98 Nasal Cannula 4.00 I/O 10/24/17 10/24/17 10/24/17 10/25/17 10/25/17 10/25/17 07:00 15:00 23:00 07:00 15:00 23:00 Intake Total 350 ml 1682 ml 138 ml Balance 350 ml 1682 ml 138 ml Intake Oral 840 ml IV Total 350 ml 842 ml 138 ml # Voids 3 # Bowel Movements 1 Result Diagram: 10/25/17 0900 10/25/17 0900 Imaging Last Impressions Chest X-Ray 10/24/171156 Signed Impressions: CONCLUSION: Linear atelectasis left lung. CT Angiography 10/24/171156 Signed Impressions: CONCLUSION: 1. The study is negative for pulmonary embolism. 2. Linear atelectasis or infiltrates in the anterior mid lungs and left lower lung. Objective Remarks GENERAL: This is a well-nourished, well-developed patient, in moderate respiratory distress. SKIN: No rashes, ecchymoses or lesions. Cool and dry. HEAD: Atraumatic. Normocephalic. No temporal or scalp tenderness. EYES: Pupils equal round and reactive. Extraocular motions intact. No scleral icterus. No injection or drainage. ENT: Nose without bleeding, purulent drainage or septal hematoma. Throat without erythema, tonsillar hypertrophy or exudate. Uvula midline. Airway patent. Mouth has white patches over the entire mouth, tongue hard and soft palate. NECK: Trachea midline. No JVD or lymphadenopathy. Supple, nontender, no meningeal signs. CARDIOVASCULAR: Regular rate and rhythm without murmurs, gallops, or rubs. RESPIRATORY: Breath sounds equal bilaterally. Mild crackles bilaterally. No wheezes, or rhonchi. GASTROINTESTINAL: Abdomen soft, non-tender, nondistended. No hepato-splenomegaly , or palpable masses. No guarding. MUSCULOSKELETAL: Extremities without clubbing, cyanosis, or edema. No joint tenderness, effusion, or edema noted. No calf tenderness. Negative Homans sign bilaterally. NEUROLOGICAL: Awake and alert. Cranial nerves II through XII intact. Motor and sensory grossly within normal limits. Five out of 5 muscle strength in all muscle groups. Normal speech. Urinary Catheter: No Vascular Central Line Catheter: No A/P Problem List: (1) Sepsis ICD Code: A41.9 - Sepsis, unspecified organism (2) Acute hypoxemic respiratory failure ICD Code: J96.01 - Acute respiratory failure with hypoxia Status: Acute (3) Bilateral pneumonia ICD Code: J18.9 - Pneumonia, unspecified organism Status: Acute (4) Hyponatremia ICD Code: E87.1 - Hypo-osmolality and hyponatremia (5) Weight loss ICD Code: R63.4 - Abnormal weight loss (6) Oral thrush ICD Code: B37.0 - Candidal stomatitis Status: Acute Assessment and Plan (1) Sepsis ICD Code: A41.9 - Sepsis, unspecified organism Plan: Present on admission, the patient presented with fever of 100.3 and heart rate of 122 as well as a respiratory rate of 22. Sepsis likely secondary to pneumonia. Chest x-ray reviewed by me shows linear atelectasis of the left lung. CT pulmonary angiogram was negative for pulmonary embolism. Linear atelectasis or infiltrates in the anterior mid lungs and left lower lung field described. Patient was given IV Rocephin IV azithromycin for suspected community-acquired pneumonia. Continue IV antibiotics as above. Continue IV fluids, telemetry. Blood cultures negative 1. (2) Acute hypoxemic respiratory failure ICD Code: J96.01 - Acute respiratory failure with hypoxia Plan: Patient with oxygen saturation into the mid 80s on room air. ABG showed a pH of 7.45, PCO2 34, PO2 57 with an oxygen saturation of 87% on room air. Treated with supplemental oxygen to keep oxygen saturation more than 90%. We will place on DuoNeb inhaled treatments. Monitor oxygen saturation. 10/25 the patient is currently on 4 L nasal cannula. Continue management as above. (3) Bilateral pneumonia ICD Code: J18.9 - Pneumonia, unspecified organism Plan: As described on CT pulmonary angiogram. IV antibiotics as above. Supplemental oxygen. Duo nebs. Check pneumococcal urine antigen, Legionella urine antigen, mycoplasma pneumonia. Concern for PCP pneumonia as the patient has oral thrush as well. Check HIV antibody screen. 10/25 patient positive for pneumococcal antigen. Patient with pneumococcal pneumonia. HIV 1 and 2 confirmation test in process. (4) Hyponatremia ICD Code: E87.1 - Hypo-osmolality and hyponatremia Plan: Likely due to hypovolemic hyponatremia secondary to dehydration. Continue IV normal saline. Monitor BMP. 10/25 sodium trending up. Continue to monitor BMP and continue IV normal saline. (5) Weight loss ICD Code: R63.4 - Abnormal weight loss Plan: Intended weight loss in the last month. Consult dietitian. (6) Oral thrush ICD Code: B37.0 - Candidal stomatitis Status: Acute Plan: Check HIV antibody screen. Will Rx Magic mouthwash and oral fluconazole. 10/25 HIV confirmatory test in process. Continue Magic mouthwash and oral fluconazole. Assessment and Plan Lovenox for DVT prophylaxis. Protonix for GI prophylaxis. Code Status Full code Discharge Planning Continue to monitor on the medical floor. Problem Qualifiers (1) Bilateral pneumonia: Qualified Codes: J18.9 - Pneumonia, unspecified organism Chase Stockton MD Oct 25, 2017 17:03
[2017-10-26] VITALS (8 sets, daily range): BP systolic 107–156; BP diastolic 69–80; PULSE 57–99; RESP 18–19; TEMP 97.3–98.4; O2SAT 94–100
[2017-10-26] MEDS: SODIUM CHLOR 0.9% 1000 ML INJ 1,000 ML IV SCH (02:41)
[2017-10-26] MEDS: FLUCONAZOLE 100 MG TAB PO SCH (08:33)
[2017-10-26] MEDS: NYSTAT/DIPHENHY/LIDO MOUTHWASH (Adult) 120ML SWISH-SWAL SCH ×4 (08:34→22:21)
[2017-10-26] MEDS: SODIUM CHLORIDE 0.9% FLUSH 10 ML FLUSH IV FLUSH SCH ×2 (08:41→22:21)
[2017-10-26] MEDS: AZITHROMYCIN INJ 500 MG in SODIUM CHLOR 0.9% 250 ML INJ 250 ML IV SCH (12:01)
[2017-10-26] MEDS: cefTRIAXone INJ 2,000 MG in SODIUM CHLORIDE 0.9% INJ 100 ML IV SCH (14:15)
--- NOTE | 2017-10-26 17:20 | HHI.PR ---
Subjective Remarks Deferred entry, the patient was seen earlier at 9:30 AM. Patient states shortness of breath is much improved, denies chest pain. Patient still on nasal cannula, satting well. Denies fevers or chills. States that thrush in the mouth is clearing. Objective Vitals Vital Signs Date Time Temp Pulse Resp B/P (MAP) Pulse Ox O2 Delivery O2 Flow Rate FiO2 10/26/17 14:16 98 21 10/26/17 12:00 97.3 70 18 107/75 (86) 98 10/26/17 08:00 97.6 57 18 117/70 (86) 100 10/26/17 04:00 98.4 58 18 118/69 (85) 98 10/26/17 03:58 59 10/26/17 00:30 98.2 79 18 134/80 (98) 95 10/25/17 23:46 65 10/25/17 20:54 94 21 10/25/17 20:00 98.8 74 18 107/77 (87) 97 10/25/17 20:00 68 I/O 10/25/17 10/25/17 10/25/17 10/26/17 10/26/17 10/26/17 07:00 15:00 23:00 07:00 15:00 23:00 Intake Total 1682 ml 738 ml 1244 ml Output Total 620 ml Balance 1682 ml 738 ml 624 ml Intake Oral 840 ml 600 ml 620 ml IV Total 842 ml 138 ml 624 ml Output Urine Total 620 ml # Voids 3 3 4 # Bowel Movements 1 2 1 Result Diagram: 10/25/17 0910/25/17 09 Imaging Last Impressions Chest X-Ray 10/24/171156 Signed Impressions: CONCLUSION: Linear atelectasis left lung. CT Angiography 10/24/171156 Signed Impressions: CONCLUSION: 1. The study is negative for pulmonary embolism. 2. Linear atelectasis or infiltrates in the anterior mid lungs and left lower lung. Objective Remarks GENERAL: This is a well-nourished, well-developed patient, in moderate respiratory distress. SKIN: No rashes, ecchymoses or lesions. Cool and dry. HEAD: Atraumatic. Normocephalic. No temporal or scalp tenderness. EYES: Pupils equal round and reactive. Extraocular motions intact. No scleral icterus. No injection or drainage. ENT: Nose without bleeding, purulent drainage or septal hematoma. Throat without erythema, tonsillar hypertrophy or exudate. Uvula midline. Airway patent. Mouth has white patches over the entire mouth, tongue hard and soft palate. NECK: Trachea midline. No JVD or lymphadenopathy. Supple, nontender, no meningeal signs. CARDIOVASCULAR: Regular rate and rhythm without murmurs, gallops, or rubs. RESPIRATORY: Breath sounds equal bilaterally. Mild crackles bilaterally. No wheezes, or rhonchi. GASTROINTESTINAL: Abdomen soft, non-tender, nondistended. No hepato-splenomegaly , or palpable masses. No guarding. MUSCULOSKELETAL: Extremities without clubbing, cyanosis, or edema. No joint tenderness, effusion, or edema noted. No calf tenderness. Negative Homans sign bilaterally. NEUROLOGICAL: Awake and alert. Cranial nerves II through XII intact. Motor and sensory grossly within normal limits. Five out of 5 muscle strength in all muscle groups. Normal speech. A/P Problem List: (1) Sepsis ICD Code: A41.9 - Sepsis, unspecified organism (2) Acute hypoxemic respiratory failure ICD Code: J96.01 - Acute respiratory failure with hypoxia Status: Acute (3) Bilateral pneumonia ICD Code: J18.9 - Pneumonia, unspecified organism Status: Acute (4) Hyponatremia ICD Code: E87.1 - Hypo-osmolality and hyponatremia (5) Weight loss ICD Code: R63.4 - Abnormal weight loss (6) Oral thrush ICD Code: B37.0 - Candidal stomatitis Status: Acute Assessment and Plan (1) Sepsis ICD Code: A41.9 - Sepsis, unspecified organism Plan: Present on admission, the patient presented with fever of 100.3 and heart rate of 122 as well as a respiratory rate of 22. Sepsis likely secondary to pneumonia. Chest x-ray reviewed by me shows linear atelectasis of the left lung. CT pulmonary angiogram was negative for pulmonary embolism. Linear atelectasis or infiltrates in the anterior mid lungs and left lower lung field described. Patient was given IV Rocephin IV azithromycin for suspected community-acquired pneumonia. Continue IV antibiotics as above. Continue IV fluids, telemetry. 10/26 sepsis clinically resolving. Patient afebrile with stable heart rate. Discontinue IV fluids. Continue IV antibiotics as above. (2) Acute hypoxemic respiratory failure ICD Code: J96.01 - Acute respiratory failure with hypoxia Plan: Patient with oxygen saturation into the mid 80s on room air. ABG showed a pH of 7.45, PCO2 34, PO2 57 with an oxygen saturation of 87% on room air. Treated with supplemental oxygen to keep oxygen saturation more than 90%. We will place on DuoNeb inhaled treatments. Monitor oxygen saturation. 10/25 the patient is currently on 4 L nasal cannula. Continue management as above. (3) Bilateral pneumonia ICD Code: J18.9 - Pneumonia, unspecified organism Plan: As described on CT pulmonary angiogram. IV antibiotics as above. Supplemental oxygen. Duo nebs. Check pneumococcal urine antigen, Legionella urine antigen, mycoplasma pneumonia. Concern for PCP pneumonia as the patient has oral thrush as well. Check HIV antibody screen. 10/26 patient positive for pneumococcal antigen. Patient with pneumococcal pneumonia. HIV 1 and 2 confirmation test in process. (4) Hyponatremia ICD Code: E87.1 - Hypo-osmolality and hyponatremia Plan: Likely due to hypovolemic hyponatremia secondary to dehydration. Continue IV normal saline. Monitor BMP. 10/25 sodium trending up. Continue to monitor BMP and continue IV normal saline. (5) Weight loss ICD Code: R63.4 - Abnormal weight loss Plan: Intended weight loss in the last month. Consult dietitian. (6) Oral thrush ICD Code: B37.0 - Candidal stomatitis Status: Acute Plan: Check HIV antibody screen. Will Rx Magic mouthwash and oral fluconazole. 10/25 HIV confirmatory test in process. Continue Magic mouthwash and oral fluconazole. Assessment and Plan Lovenox for DVT prophylaxis. Protonix for GI prophylaxis. Code Status Full code Discharge Planning Continue to monitor on the medical floor. Problem Qualifiers (1) Bilateral pneumonia: Qualified Codes: J18.9 - Pneumonia, unspecified organism Chase Stockton MD Oct 26, 2017 17:20
[2017-10-26] MEDS: ENOXAPARIN SODIUM 40 MG/0.4 ML SYRINGE SQ SCH (18:27)
[2017-10-27] VITALS (8 sets, daily range): BP systolic 100–125; BP diastolic 70–86; PULSE 68–88; RESP 16–18; TEMP 98.2–98.9; O2SAT 94–100
[2017-10-27 05:55] LABS: ALBUMIN 2.2 GM/DL (3.4-5.0); AST (GOT) 55 U/L (15-37); AUTOMATED NEUTROPHIL # 2.5 TH/MM3 (1.8-7.7); BASOPHIL % 0.6 % (0.0-2.0); BICARBONATE 23.9 MEQ/L (21.0-32.0); BLOOD UREA NITROGEN 5 MG/DL (7-18); CALCIUM 7.9 MG/DL (8.5-10.1); CHLORIDE 101 MEQ/L (98-107); CREATININE 0.56 MG/DL (0.50-1.00); EOSINOPHIL # 0.1 TH/MM3 (0-0.4); EOSINOPHIL % 2.9 % (0.0-4.0); GLOMERULAR FILTRATION RATE 116 ML/MIN (>89); GLUCOSE,RANDOM 78 MG/DL (74-106); HEMATOCRIT 36.2 % (35.0-46.0); HEMOGLOBIN 12.7 GM/DL (11.6-15.3); LYMPH % 13.7 % (9.0-44.0); LYMPHOCYTE # 0.5 TH/MM3 (1.0-4.8); MAGNESIUM 1.7 MG/DL (1.5-2.5); MEAN CELL VOLUME 96.2 FL (80.0-100.0); MEAN CORPUSCULAR HEMOGLOBIN 33.9 PG (27.0-34.0); MEAN CORPUSCULAR HGB CONC 35.2 % (32.0-36.0); MEAN PLATELET VOLUME 7.9 FL (7.0-11.0); MONO % 15.8 % (0.0-8.0); MONOCYTE # 0.6 TH/MM3 (0-0.9); PLATELET COUNT 223 TH/MM3 (150-450); RED BLOOD COUNT 3.76 MIL/MM3 (4.00-5.30); RED CELL DISTRIBUTION WIDTH 16.5 % (11.6-17.2); SODIUM (NA) 135 MEQ/L (136-145); WHITE BLOOD COUNT 3.8 TH/MM3 (4.0-11.0)
[2017-10-27 05:57] LABS: ALKALINE PHOSPHATASE 153 U/L (45-117); ALT (GPT) 37 U/L (10-53); PHOSPHORUS 3.8 MG/DL (2.5-4.9); TOTAL BILIRUBIN ADULT 0.3 MG/DL (0.2-1.0); TOTAL PROTEIN 6.9 GM/DL (6.4-8.2)
[2017-10-27] MEDS: SODIUM CHLORIDE 0.9% FLUSH 10 ML FLUSH IV FLUSH SCH ×2 (09:00→22:24)
[2017-10-27] MEDS: NYSTAT/DIPHENHY/LIDO MOUTHWASH (Adult) 120ML SWISH-SWAL SCH ×4 (09:00→22:24)
[2017-10-27] MEDS: FLUCONAZOLE 100 MG TAB PO SCH (10:03)
[2017-10-27] MEDS ORDERED: POTASSIUM CHLORIDE 10 MEQ CONTROLLED RELEASE TAB PO ONE (10:30)
[2017-10-27] MEDS: AZITHROMYCIN INJ 500 MG in SODIUM CHLOR 0.9% 250 ML INJ 250 ML IV SCH (11:54)
[2017-10-27] MEDS: cefTRIAXone INJ 2,000 MG in SODIUM CHLORIDE 0.9% INJ 100 ML IV SCH (13:23)
[2017-10-27 15:25] LABS: MYCOPLASMA PNEUMONIAE IGG Positive (Negative); MYCOPLASMA PNEUMONIAE IGM Negative (Negative)
[2017-10-27] MEDS: ENOXAPARIN SODIUM 40 MG/0.4 ML SYRINGE SQ SCH (16:26)
--- NOTE | 2017-10-27 17:07 | HHI.PR ---
Subjective Remarks Deferred entry, the patient was seen at 12:15 PM. The patient states she feels much better. Patient is inquiring on one issue going to be discharged. Denies fevers or chills. The patient states she has been using oxygen on and off. Denies chest pain or shortness of breath. Objective Vitals Vital Signs Date Time Temp Pulse Resp B/P (MAP) Pulse Ox O2 Delivery O2 Flow Rate FiO2 10/27/17 16:25 98.8 77 17 125/86 (99) 95 10/27/17 12:04 98.8 81 18 116/76 (89) 95 10/27/17 10:43 69 10/27/17 10:27 96 21 10/27/17 08:15 98.2 76 17 119/76 (90) 94 10/27/17 04:00 98.3 88 16 110/71 (84) 95 10/27/17 00:00 98.9 72 18 115/77 (90) 98 10/26/17 20:00 98.3 75 18 118/76 (90) 94 I/O 10/26/17 10/26/17 10/26/17 10/27/17 10/27/17 10/27/17 07:00 15:00 23:00 07:00 15:00 23:00 Intake Total 1244 ml 240 ml Output Total 620 ml Balance 624 ml 240 ml Intake Oral 620 ml 240 ml IV Total 624 ml Output Urine Total 620 ml # Voids 4 4 3 # Bowel Movements 1 0 Result Diagram: 10/27/17 0453 10/27/17 0453 Imaging Last Impressions Chest X-Ray 10/24/171156 Signed Impressions: CONCLUSION: Linear atelectasis left lung. CT Angiography 10/24/171156 Signed Impressions: CONCLUSION: 1. The study is negative for pulmonary embolism. 2. Linear atelectasis or infiltrates in the anterior mid lungs and left lower lung. Objective Remarks GENERAL: This is a well-nourished, well-developed patient, in moderate respiratory distress. SKIN: No rashes, ecchymoses or lesions. Cool and dry. HEAD: Atraumatic. Normocephalic. No temporal or scalp tenderness. EYES: Pupils equal round and reactive. Extraocular motions intact. No scleral icterus. No injection or drainage. ENT: Nose without bleeding, purulent drainage or septal hematoma. Throat without erythema, tonsillar hypertrophy or exudate. Uvula midline. Airway patent. Mouth has white patches over the entire mouth, tongue hard and soft palate. NECK: Trachea midline. No JVD or lymphadenopathy. Supple, nontender, no meningeal signs. CARDIOVASCULAR: Regular rate and rhythm without murmurs, gallops, or rubs. RESPIRATORY: Breath sounds equal bilaterally. Mild crackles bilaterally. No wheezes, or rhonchi. GASTROINTESTINAL: Abdomen soft, non-tender, nondistended. No hepato-splenomegaly , or palpable masses. No guarding. MUSCULOSKELETAL: Extremities without clubbing, cyanosis, or edema. No joint tenderness, effusion, or edema noted. No calf tenderness. Negative Homans sign bilaterally. NEUROLOGICAL: Awake and alert. Cranial nerves II through XII intact. Motor and sensory grossly within normal limits. Five out of 5 muscle strength in all muscle groups. Normal speech. A/P Problem List: (1) Sepsis ICD Code: A41.9 - Sepsis, unspecified organism (2) Acute hypoxemic respiratory failure ICD Code: J96.01 - Acute respiratory failure with hypoxia Status: Acute (3) Bilateral pneumonia ICD Code: J18.9 - Pneumonia, unspecified organism Status: Acute (4) Hyponatremia ICD Code: E87.1 - Hypo-osmolality and hyponatremia (5) Weight loss ICD Code: R63.4 - Abnormal weight loss (6) Oral thrush ICD Code: B37.0 - Candidal stomatitis Status: Acute (7) HIV antibody positive ICD Code: Z21 - Asymptomatic human immunodeficiency virus [HIV] infection status Plan: Patient with positive HIV 1 antibody Await CD4 count for appropriate prophylaxis if indicated. Assessment and Plan (1) Sepsis ICD Code: A41.9 - Sepsis, unspecified organism Plan: Present on admission, the patient presented with fever of 100.3 and heart rate of 122 as well as a respiratory rate of 22. Sepsis likely secondary to pneumonia. Chest x-ray reviewed by me shows linear atelectasis of the left lung. CT pulmonary angiogram was negative for pulmonary embolism. Linear atelectasis or infiltrates in the anterior mid lungs and left lower lung field described. Patient was given IV Rocephin IV azithromycin for suspected community-acquired pneumonia. Continue IV antibiotics as above. Continue IV fluids, telemetry. Sepsis clinically resolved. Patient afebrile with stable heart rate. Discontinue IV fluids. Continue IV antibiotics as above. (2) Acute hypoxemic respiratory failure ICD Code: J96.01 - Acute respiratory failure with hypoxia Plan: Patient with oxygen saturation into the mid 80s on room air. ABG showed a pH of 7.45, PCO2 34, PO2 57 with an oxygen saturation of 87% on room air. Treated with supplemental oxygen to keep oxygen saturation more than 90%. We will place on DuoNeb inhaled treatments. Monitor oxygen saturation. 10/25 the patient is currently on 4 L nasal cannula. Continue management as above. Will order home oxygen walk test. (3) Bilateral pneumonia Plan: As described on CT pulmonary angiogram. IV antibiotics as above. Supplemental oxygen. Duo nebs. Check pneumococcal urine antigen, Legionella urine antigen, mycoplasma pneumonia. Concern for PCP pneumonia as the patient has oral thrush as well. Check HIV antibody screen. 10/26 patient positive for pneumococcal antigen. Patient with pneumococcal pneumonia. 10/27 mycoplasma pneumonia IgG positive with negative IgM. Results suggest past exposure. (4) Hyponatremia ICD Code: E87.1 - Hypo-osmolality and hyponatremia Plan: Likely due to hypovolemic hyponatremia secondary to dehydration. Continue IV normal saline. Monitor BMP. 10/25 sodium trending up. Continue to monitor BMP and continue IV normal saline. 10/27 hyponatremia resolved. Continue to monitor BMP. (5) Weight loss ICD Code: R63.4 - Abnormal weight loss Plan: Intended weight loss in the last month. Consult dietitian. (6) Oral thrush ICD Code: B37.0 - Candidal stomatitis Status: Acute Plan: Check HIV antibody screen. Will Rx Magic mouthwash and oral fluconazole. 10/27 resolving. Continue Magic mouthwash and oral fluconazole. Assessment and Plan Lovenox for DVT prophylaxis. Protonix for GI prophylaxis. Code Status Full code Discharge Planning Possible discharge in a.m., pending CD4 count and walk test. Problem Qualifiers (1) Bilateral pneumonia: Qualified Codes: J18.9 - Pneumonia, unspecified organism Chase Stockton MD Oct 27, 2017 17:07
[2017-10-27 23:54] LABS: CD3-/CD16+CD56+ PERCENT 8 % (4-25); CD3-CD16+CD56+ (ABSOLUTE) 52 (70-760); LYMPHOCYTES, ABSOLUTE 634 (850-3900)
[2017-10-28] VITALS: BP 113/70; PULSE 84; RESP 18; TEMP 98.5; O2SAT 96
[2017-10-28 04:00] VITALS: BP 115/74; PULSE 66; RESP 18; TEMP 98.3; O2SAT 100
[2017-10-28 08:25] VITALS: BP 115/66; PULSE 83; RESP 17; TEMP 98.3; O2SAT 96
[2017-10-28] MEDS: NYSTAT/DIPHENHY/LIDO MOUTHWASH (Adult) 120ML SWISH-SWAL SCH (08:30)
[2017-10-28] MEDS: FLUCONAZOLE 100 MG TAB PO SCH (08:30)
[2017-10-28] MEDS: SODIUM CHLORIDE 0.9% FLUSH 10 ML FLUSH IV FLUSH SCH (09:00)
[2017-10-28] MEDS ORDERED: SULFAMETHOXAZOLE-TRIMETHOPRIM DS 800-160 MG TAB PO SCH (09:00)
[2017-10-28] MEDS ORDERED: SULF1TAB23 PO (09:17)
[2017-10-28] MEDS ORDERED: DIFL100T PO (09:17)
[2017-10-28] MEDS ORDERED: MAGICADU2 SWISH-SWAL (09:17)
--- NOTE | 2017-10-28 09:25 | HHI.DCPOC ---
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 Avoid second hand smoke Call the 24-hour hour crisis hotline for domestic abuse at Chase Stockton MD Oct 28, 2017 09:25
--- NOTE | 2017-10-28 09:40 | HHI.DS ---
Discharge Summary Admission Date Oct 24, 2017 at 14:44 Discharge Date: Oct 28, 2017 Admitting Diagnosis HYPOXEMIC RESPIRATORY FAILURE REQUIRING SUPPL O2, BILOBAR PNEUMONIA (1) Sepsis ICD Code: A41.9 - Sepsis, unspecified organism Diagnosis: Principal Status: Resolved (2) Acute hypoxemic respiratory failure ICD Code: J96.01 - Acute respiratory failure with hypoxia Diagnosis: Principal Status: Acute (3) Bilateral pneumonia ICD Code: J18.9 - Pneumonia, unspecified organism Diagnosis: Principal Status: Acute (4) Hyponatremia ICD Code: E87.1 - Hypo-osmolality and hyponatremia Diagnosis: Principal Status: Resolved (5) Weight loss ICD Code: R63.4 - Abnormal weight loss Diagnosis: Principal Status: Resolved (6) Oral thrush ICD Code: B37.0 - Candidal stomatitis Diagnosis: Principal Status: Resolved (7) HIV antibody positive ICD Code: Z21 - Asymptomatic human immunodeficiency virus [HIV] infection status Diagnosis: Principal Procedures none Brief History - From Admission This is a 46-year-old female with past medical history of mitral valve prolapse who presents to [facility] complaining of cough for the past 5 days associated with substernal chest pain which is nonradiating and brought up when she coughs. Chest pain is relieved when patient stops coughing. The patient also complains of shortness of breath however denies fevers or chills. The patient also states that she has noticed in the past 2 weeks a white plaques in her mouth associated with pain. The patient states that she has tried to scrub off the white plaques that she has over at her lips but when she does that she has some bleeding from them. Patient also states that over the past month she has lost over 20 pounds without wanting to lose them. The patient otherwise denies any diarrhea, abdominal pain, dysuria, skin lesion. ED physician states that the patient decided into the mid 80s without oxygen in the emergency department which improved with oxygen administration. The patient's oxygen is noted to drop into the mid 80s without oxygen during my interview. The patient denies any sick contacts or recent international travel. CBC/BMP: 10/27/17 0453 10/27/17 0453 Significant Findings Laboratory Tests Test 10/26/17 13:32 10/27/17 04:53 Absolute Lymphocytes (Cell Immunity 634 (850-3900) Absolute CD3 Count 536 (840-3060) Absolute CD3-/CD16+/CD56+ Count 52 (70-760) Percent CD4 Cells 18 % (30-61) Absolute CD4 Count 118 (490-1740) T-Mcclure/Suppressor Ratio 0.3 (0.86-5.00) Percent CD8 Cells 64 % (12-42) Percent CD19 Cells 4 % (6-29) Absolute CD19 Count 28 (110-660) White Blood Count 3.8 TH/MM3 (4.0-11.0) Red Blood Count 3.76 MIL/MM3 (4.00-5.30) Monocytes (%) (Auto) 15.8 % (0.0-8.0) Lymphocytes # (Auto) 0.5 TH/MM3 (1.0-4.8) Blood Urea Nitrogen 5 MG/DL (7-18) Albumin 2.2 GM/DL (3.4-5.0) Calcium Level 7.9 MG/DL (8.5-10.1) Alkaline Phosphatase 153 U/L (45-117) Aspartate Amino Transf (AST/SGOT) 55 U/L (15-37) Sodium Level 135 MEQ/L (136-145) Imaging Last Impressions Chest X-Ray 10/24/17 115 Signed Impressions: CONCLUSION: Linear atelectasis left lung. CT Angiography 10/24/17 115 Signed Impressions: CONCLUSION: 1. The study is negative for pulmonary embolism. 2. Linear atelectasis or infiltrates in the anterior mid lungs and left lower lung. PE at Discharge GENERAL: This is a well-nourished, well-developed patient, in moderate respiratory distress. SKIN: No rashes, ecchymoses or lesions. Cool and dry. HEAD: Atraumatic. Normocephalic. No temporal or scalp tenderness. EYES: Pupils equal round and reactive. Extraocular motions intact. No scleral icterus. No injection or drainage. ENT: Nose without bleeding, purulent drainage or septal hematoma. Throat without erythema, tonsillar hypertrophy or exudate. Uvula midline. Airway patent. Mouth has white patches over the entire mouth, tongue hard and soft palate. NECK: Trachea midline. No JVD or lymphadenopathy. Supple, nontender, no meningeal signs. CARDIOVASCULAR: Regular rate and rhythm without murmurs, gallops, or rubs. RESPIRATORY: Breath sounds equal bilaterally. Mild crackles bilaterally. No wheezes, or rhonchi. GASTROINTESTINAL: Abdomen soft, non-tender, nondistended. No hepato-splenomegaly , or palpable masses. No guarding. MUSCULOSKELETAL: Extremities without clubbing, cyanosis, or edema. No joint tenderness, effusion, or edema noted. No calf tenderness. Negative Homans sign bilaterally. NEUROLOGICAL: Awake and alert. Cranial nerves II through XII intact. Motor and sensory grossly within normal limits. Five out of 5 muscle strength in all muscle groups. Normal speech. Pt update on day of discharge The patient denies chest pain or shortness of breath. Patient is sitting up in bed very comfortably. There are no fevers or chills. Hospital Course The patient was admitted to the medical floor, treated with IV Rocephin IV azithromycin, IV fluids. Sepsis eventually resolved. On admission the patient had a very low oxygen saturation of 88% on room air. Patient was treated with oxygen. HIV suspected from history, so HIV testing was ordered. Labs showed positive HIV with confirmation. Patient had an HIV 1 antibody positive. Patient was also found to have oral thrush for which Magic mouthwash and oral fluconazole was started. The patient will be discharged on oral cefuroxime to finish a total of 5 days of azithromycin. Walk test was performed prior to discharge and the patient failed it. The patient will need home O2 upon discharge. The patient was advised to follow-up with the health department. police manager provided information on how to contact the health department. Patient had a CD4 count of 118 for which she was started on vitamin D S1 tablet 3 times per week for PCP prophylaxis. Additional consulted for weight loss which is likely secondary to HIV. In light 3 times daily recommended. Pt Condition on Discharge: Stable Discharge Disposition: Discharge Home Discharge Time: > 30 minutes Discharge Instructions DIET: Follow Instructions for: As Tolerated, No Restrictions Activities you can perform: Regular-No Restrictions Follow up Referrals: Appointment for Follow Up - 2-3 Days with health department PCP Follow-up - 2 Weeks New Medications: Fluconazole (Diflucan) 100 Mg Tab 100 MG PO DAILY for Infection, #10 TAB Sktoxnhc-Vwedpmleigvmxzs-Vsnoxuato Liq (Magic Mouthwash Adult Liq) 120 Ml Susp 10 ML SWISH-SWAL QID for Infection, #1 BOTTLE Sulfamethoxazole-Trimethoprim (Sulfamethoxazole-Trimethoprim) 800-160 Mg Tab 1 TAB PO MoWeFr@09 for Infection, #24 TAB Chase Stockton MD Oct 28, 2017 09:40
[2017-10-28] MEDS ORDERED: CEFU1TAB20 PO (09:43)
[2017-10-28] MEDS ORDERED: AZIT500T2 PO (09:43)
[2017-10-28 22:41] LABS: ABACAVIR SUSC; ATAZANAVIR WITH RITONAVIR SUSC; DARUNAVIR WITH RITONAVIR SUSC; DIDANOSINE SUSC; EFAVIRENZ RESIST; ETRAVIRINE SUSC; FOSAMPRENAVIR WITH RITONAVIR SUSC; HIV-1 GENOTYPING INTERP; INDINAVIR WITH RITONAVIR SUSC; LOPINAVIR WITH RITONAVIR SUSC; NELFINAVIR SUSC; NEVIRAPINE RESIST; NONNUCLEOSIDE RT MUTATIONS K103N; PROTEASE MUTATIONS L10I; SAQUINAVIR WITH RITONAVIR SUSC; STAVUDINE SUSC; TENOFOVIR SUSC; TIPRANAVIR WITH RITONAVIR SUSC; ZIDOVUDINE SUSC
== END 2017-10-28 11:16 | disposition home or self-care (01) | DRG 974 ==
LOC: NEPC 11:42 → NEDA 14:17 → OBSVTOIN 14:44 → N06A 16:52
PROVIDERS: ADMIT Hospitalist; ATTEND Hospitalist
DX: A41.9 Sepsis, unspecified organism (principal); B20 Human immunodeficiency virus [HIV] disease; J96.01 Acute respiratory failure with hypoxia; J13 Pneumonia due to Streptococcus pneumoniae; B37.0 Candidal stomatitis; E87.1 Hypo-osmolality and hyponatremia; E86.0 Dehydration; J98.11 Atelectasis; R63.4 Abnormal weight loss; E87.6 Hypokalemia; I34.1 Nonrheumatic mitral (valve) prolapse; F10.10 Alcohol abuse, uncomplicated; Z87.891 Personal history of nicotine dependence; Z82.49 Family history of ischemic heart disease and other diseases of the circulatory system; Z23 Encounter for immunization
CPT/HCPCS: 36600; 71045; 71275; 80053; 82550; 82805; 83605; 83690; 83735; 83880; 84100; 84484; 85025; 85379; 85610; 85730; 86355; 86357; 86359; 86360; 86738; 87040; 87070; 87205; 87389; 87449; 87804; 87901; 93005; 94618; G0475; J0456; J0696; J1650; J7030; J7050; Q9967